=== PATIENT | female | born 1980 | race American Indian/Alaskan Native ===

== ENCOUNTER 2016-12-28 19:35 | Emergency (ER) | payer MEDICARE, OTHER ==
[2016-12-28 19:35] VITALS: BMI 25.7
[2016-12-28 19:43] VITALS: BP 124/80; PULSE 82; RESP 20; TEMP 98.4; O2SAT 99
--- NOTE | 2016-12-28 20:30 | C.PDOC ---
History Of Present Illness 36 y/o female complaining of vaginal rash that presented two days ago. She is concerned about vaginal warts. Denies any vaginal swelling, vaginal bleeding, itching, pain, or other complaint. Time Seen by Provider: 12/28/16 19:58 Chief Complaint (Nursing): Abnormal Skin Integrity Onset/Duration Of Symptoms: Days (2) Current Symptoms Are (Timing): Still Present Location Of Injury: Right: Labia, Left: Labia Quality Of Symptoms: denies: Painful, Itching, Swollen, Draining Severity: None Recent travel outside of the [place]: No Additional History Per: Patient Past Medical History Vital Signs: Last Vital Signs Temp 98.4 F 12/28/16 19:40 Pulse 82 12/28/16 19:40 Resp 20 12/28/16 19:40 BP 124/80 12/28/16 19:40 Pulse Ox 99 12/28/16 20:35 - Medical History PMH: Anxiety, Bipolar Disorder, Depression, Schizophrenia, Seizures (last episode 2013) Denies: Diabetes, Hepatitis, HIV, HTN, Sexually Transmitted Disease Surgical History: Cholecystectomy - [facility] Procedures INDIVID PSYCHOTHERAP NEC (03/30/14) INJECT/INFUSE NEC (01/08/14) OTHER GROUP THERAPY (03/30/14) PSYCHIA INTERV/EVAL NEC (03/22/13) PSYCHIAT DRUG THERAP NEC (11/16/13) Family History: States: Unknown Family Hx - Social History Hx Tobacco Use: Yes Hx Alcohol Use: No Hx Substance Use: No - Immunization History Hx Tetanus Toxoid Vaccination: No Hx Influenza Vaccination: No Hx Pneumococcal Vaccination: No Review Of Systems Except As Marked, All Systems Reviewed And Found Negative. Skin: Positive for: Lesions Physical Exam - Physical Exam Appears: Well, No Acute Distress Skin: Normal Color, Warm, Other (see exam) Head: Atraumatic, Normacephalic Eye(s): bilateral: Normal Inspection, PERRL Neck: Normal ROM Respiratory: Normal Breath Sounds Gastrointestinal/Abdominal: Normal Exam, Bowel Sounds, Soft, No Tenderness Back: Normal Inspection Pelvic: Normal Speculum Exam, Normal Bimanual Exam, No Vaginal Bleeding, No Vaginal Discharge, Other (small flesh colored non erythematous, nontender papule noted to labia majora, bilaterally. No vesicles, no canker sores, no mass , swelling or fluctuance. ) ED Course And Treatment O2 Sat by Pulse Oximetry: 99 (RA) Pulse Ox Interpretation: Normal Medical Decision Making Medical Decision Making: Patient evaluated. She is medically stable for discharge and comfortable going home. All questions answered to the patient's satisfaction. She will follow up with her PMD, and should return to the department with any new/worsening concerns. Disposition Doctor Will See Patient In The: Office Counseled Patient/Family Regarding: Diagnosis, Need For Followup - Disposition Disposition: HOME/ ROUTINE Disposition Time: 20:20 Condition: STABLE Additional Instructions: Please follow up with [facility] [employer] Retun to ER if worse Instructions: Folliculitis (ED) - Clinical Impression Clinical Impression: Inflammation of hair follicles, Vaginal irritation - Scribe Statement The provider has reviewed the documentation as recorded by the Scribe Nubia Paris
--- NOTE | 2016-12-28 20:32 | C.PDOC ---
Chief Complaint (Nursing): Abnormal Skin Integrity Past Medical History Vital Signs: Last Vital Signs Temp 98.4 F 12/28/16 19:40 Pulse 82 12/28/16 19:40 Resp 20 12/28/16 19:40 BP 124/80 12/28/16 19:40 Pulse Ox 99 12/28/16 19:40 - Medical History PMH: Anxiety, Bipolar Disorder, Depression, Schizophrenia, Seizures (last episode 2013) Denies: Diabetes, Hepatitis, HIV, HTN, Sexually Transmitted Disease Surgical History: Cholecystectomy - [facility] Procedures INDIVID PSYCHOTHERAP NEC (03/30/14) INJECT/INFUSE NEC (01/08/14) OTHER GROUP THERAPY (03/30/14) PSYCHIA INTERV/EVAL NEC (03/22/13) PSYCHIAT DRUG THERAP NEC (11/16/13) Family History: States: Unknown Family Hx - Social History Hx Tobacco Use: Yes Hx Alcohol Use: No Hx Substance Use: No - Immunization History Hx Tetanus Toxoid Vaccination: No Hx Influenza Vaccination: No Hx Pneumococcal Vaccination: No ED Course And Treatment O2 Sat by Pulse Oximetry: 99 Disposition - Disposition Disposition: HOME/ ROUTINE Disposition Time: 20:29 Condition: STABLE Additional Instructions: Please follow up with [facility] Retun to ER if worse Instructions: Folliculitis (ED) - Clinical Impression Clinical Impression: Inflammation of hair follicles, Vaginal irritation
== END 2016-12-28 20:37 | disposition home or self-care (01) ==
LOC: C.ER 19:35
DX: L73.8 Other specified follicular disorders (principal); N89.8 Other specified noninflammatory disorders of vagina

== ENCOUNTER 2017-05-17 09:55 | Inpatient (IN) | payer MEDICARE, MEDICAID ==
[2017-05-17 09:55] VITALS: BMI 25.7
--- NOTE | 2017-05-17 10:20 | C.PDOC ---
History Of Present Illness 36 y/o female with Hx of Schizophrenia presents to ED with homicidal ideation beginning today with associated audible hallucination. Patient states "I want to hurt white people" and reports to be compliant with psych medications. No other complaints at this time. HOMICIDAL IDEATION TODAY. +AUD HALLUCINATIONS, WANTS "TO HURT WHITE PEOPLE". COMPLIANT W PSYCH MEDS history of schizophrenia EXAM NAD PSYCH CALM COOPERATIVE +ACTIVE AUD HALLUCINATIONS, H.I. REMAINDER EG Time Seen by Provider: 05/17/17 10:06 History Per: Patient History/Exam Limitations: no limitations Onset/Duration Of Symptoms: Days Current Symptoms Are (Timing): Still Present Suicide/Self Injury Attempted (Context): None Modifying Factor(s): None Past Medical History Reviewed: Historical Data, Nursing Documentation, Vital Signs Vital Signs: Last Vital Signs Temp 97.8 F 05/17/17 10:00 Pulse 68 05/17/17 10:00 Resp 18 05/17/17 10:00 BP 104/70 05/17/17 10:00 Pulse Ox 99 05/17/17 11:26 - Medical History PMH: Anxiety, Bipolar Disorder, Depression, Schizophrenia, Seizures (last episode 2013) Surgical History: Cholecystectomy - [facility] Procedures INDIVID PSYCHOTHERAP NEC (03/30/14) INJECT/INFUSE NEC (01/08/14) OTHER GROUP THERAPY (03/30/14) PSYCHIA INTERV/EVAL NEC (03/22/13) PSYCHIAT DRUG THERAP NEC (11/16/13) Family History: States: No Known Family Hx - Social History Hx Tobacco Use: Yes Hx Alcohol Use: No Hx Substance Use: No - Immunization History Hx Tetanus Toxoid Vaccination: No Hx Influenza Vaccination: No Hx Pneumococcal Vaccination: No Review Of Systems Except As Marked, All Systems Reviewed And Found Negative. Constitutional: Negative for: Fever, Chills Cardiovascular: Negative for: Chest Pain Respiratory: Negative for: Shortness of Breath Skin: Negative for: Rash Neurological: Negative for: Weakness, Numbness Psych: Positive for: Other (Homicidal ideation). Negative for: Suicidal ideation Physical Exam - Physical Exam Appears: Non-toxic, No Acute Distress Skin: Normal Color, Warm, Dry, No Rash Head: Normacephalic Eye(s): bilateral: Normal Inspection Oral Mucosa: Moist Neck: Normal ROM, Supple Chest: Symmetrical Cardiovascular: Rhythm Regular, No Murmur Respiratory: Normal Breath Sounds, No Rales, No Rhonchi, No Wheezing Extremity: Normal ROM, Capillary Refill (<2 seconds) Neurological/Psych: Oriented x3, Normal Speech, Other (calm, cooperative, Active audible hallucinations) ED Course And Treatment - Laboratory Results Result Diagrams: 05/17/17 10:32 05/17/17 10:32 O2 Sat by Pulse Oximetry: 99 (RA) Pulse Ox Interpretation: Normal Progress - Re-Evaluation Re-evaluation Note: 05/17/17 10:19 D/W CRISIS CARLOS WILL EVAL IN ER 05/17/17 11:25 MED CLEAR FOR PSYCH. ASYMPT ABN UA. ADVISE FU UA, CONSULT MEDICINE PRN CRISIS CARLOS NOTIFIED - Data Reviewed Data Reviewed: Lab, Old records - Continuity of Care Discussed pt. case with business operations consultant/specialty: Psychiatry Disposition Counseled Patient/Family Regarding: Studies Performed, Diagnosis - Disposition Disposition: HOSPITALIZED Disposition Time: 11:55 Condition: STABLE - POA Present On Arrival: None - Clinical Impression Clinical Impression: Schizophrenia, Homicidal ideation - Scribe Statement The provider has reviewed the documentation as recorded by the Scribe Claudette Moffett All medical record entries made by the Scribe were at my direction and personally dictated by me. I have reviewed the chart and agree that the record accurately reflects my personal performance of the history, physical exam, medical decision making, and the department course for this patient. I have also personally directed, reviewed, and agree with the discharge instructions and disposition. Decision To Admit - Pt Status Changed To: Hospital Disposition Of: Inpatient - Admit Certification Admit to Inpatient:: After my assessment, the patient will require hospitalization for at least two midnights. This is because of the severity of symptoms shown, intensity of services needed, and/or the medical risk in this patient being treated as an outpatient. - InPatient: Physician Admission Certification: I certify that this patient requires 2 or more midnights of care for the following reason:: SEE NOTE - . Bed Request Type: Psychiatry Admitting Physician: Marcelino Gomez Patient Diagnosis: Schizophrenia, Homicidal ideation
[2017-05-17 10:41] LABS: BASO # 0.1 K/uL (0.0-0.2); BASO % 0.6 % (0.0-2.0); EOS # 0.3 K/uL (0.0-0.7); EOS % 3.9 % (0.0-4.0); HEMATOCRIT 36.7 % (34.0-47.0); LYMPH # 3.1 K/uL (1.0-4.3); LYMPH % 38.6 % (20.0-40.0); MEAN CELL VOLUME 85.8 fL (81.0-99.0); MEAN CORPUSCULAR HEMOGLOBIN 29.5 pg (27.0-31.0); MEAN CORPUSCULAR HGB CONC 34.4 g/dL (33.0-37.0); MEAN PLATELET VOLUME 7.7 fL (7.2-11.7); MONO # 0.6 K/uL (0.0-0.8); MONO % 6.8 % (0.0-10.0); RED CELL DISTRIBUTION WIDTH 14.3 % (11.5-14.5); WHITE BLOOD COUNT 8.1 K/uL (4.8-10.8)
[2017-05-17 10:52] LABS: CHLORIDE 99 mmol/L (98-107)
[2017-05-17 10:53] LABS: POTASSIUM 3.8 mmol/L (3.6-5.2); SODIUM 140 mmol/L (132-148)
[2017-05-17 10:55] LABS: ALB/GLOB RATIO 1.4 (1.0-2.1); ALKALINE PHOSPHATASE 58 U/L (38-126); ALT/SGPT 21 U/L (9-52); AST/SGOT 15 U/L (14-36); BILIRUBIN,TOTAL 0.7 mg/dL (0.2-1.3); BLOOD UREA NITROGEN 6 mg/dL (7-17); CARBON DIOXIDE 25 mmol/L (22-30); GFR AFRICAN-AMERICAN > 60; GLUCOSE,RANDOM 77 mg/dL (65-105); TOTAL PROTEIN 7.2 g/dL (6.3-8.3)
[2017-05-17 10:56] LABS: ALCOHOL SERUM < 10 mg/dl (0-10); CALCIUM 9.2 mg/dl (8.6-10.4)
[2017-05-17 11:10] LABS: RBC URINE 2 /hpf (0-3); URINE BACTERIA RARE (<OCC); URINE BILIRUBIN NEGATIVE (NEGATIVE); URINE BLOOD NEGATIVE (NEGATIVE); URINE COLOR Yellow (YELLOW); URINE GLUCOSE (UA) NORMAL (Normal); URINE KETONE 1+ mg/dL (NEGATIVE); URINE LEUKOCYTE ESTERASE 1+ Leu/uL (Negative); URINE PROTEIN 1+ mg/dL (NEGATIVE); WBC URINE 17 /hpf (0-5)
--- NOTE | 2017-05-17 13:51 | PCM.BM ---
<Jana Benitez - Last Filed: 05/19/17 11:23> Family Contact Family involvement: Family/SO is involved Family contact: Patient agrees to contact Family contact name: Mary Razo-sister Family contacted how many times per week?: 1 - Goals for Treatment Patient goals for treatment: "I want to go back to [facility] Discharge/Continuing Care - Education Needs Education Needs: Patient Medication, Patient Coping Skills - Discharge Discharge Criteria: Tolerates medication w/o severe side effects, Reduction of target symptoms Discharge to:: Home - Treatment Team Participation Discussed with Family/SO: Yes Was Patient/Family/SO present at Treatment Team Meeting: Yes <Zeenat Perry - Last Filed: 05/19/17 11:52> Treatment Plan Problems - Problems identified on initial assessmt Hallucinations Auditory Date Initiated: 05/19/17 Time Initiated: 11:55 Assessment reference: NA Status: Active Treatment assets and liabiliti Patient Assests: cooperative, physically healthy, negotiates basic needs Patient Liabilities: auditory impairment, other - Milieu Protocol Maintain good personal hygiene: daily Encourage regular showers, daily Remind patient to perform daily oral care, daily Assist patient to perform ADL's Maintain personal safety: daily Educate patient to report safety concerns to staff, daily Monitor environment for contraband/sharps Medication safety: Monitor for expected outcome, potential side effects: every other day, Assess barriers to learning: daily, Assess readiness for medication education: daily <Marcelino Gomez - Last Filed: 05/19/17 17:03> - Diagnosis (1) Schizophrenia Status: Acute Interventions: Medications We will see patient every day for 7 days Supportive therapy Group therapy 05/19/17 17:02
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
--- NOTE | 2017-05-19 17:05 | PCM.PYCHPN ---
Psychiatric Progress Note - Psychiatric Progress Note Patient seen today, length of contact: 15 minutes Patient Chief Complaint: I'm feeling much better with the treatment. Problems Identified/Issues Discussed: Patient seen. Chart reviewed. Issues related to illness and treatment were discussed with the patient Reported compliant with treatment with no adverse affects. Tolerating treatment very well. Reported she is feeling much better with the treatment. Less delusions. Better sleep. Aftercare discussed with the patient. At the time of evaluation, patient was awake alert oriented 3, had no delusions , no auditory or visual hallucinations, no suicidal ideations or homicidal ideations. Medical Problems: None reported Diagnostic Results: Reviewed DSM 5 Symptoms Update: Improving with treatment Medication Change: No Medical Record Reviewed: Yes Mental Status Examination - Cognitive Function Orientation: Person, Place, Situation, Time Memory: Intact Attention: WNL Concentration: WNL Association: WNL Fund of Knowledge: [facility] Decription of patient's judgement and insights: Fair - Mood Mood: Depressed (Less than before) - Affect Affect: Flat - Speech Speech: Appropriate - Formal Thought Process Formal Thought Process: Delusions - Suicidal Ideation Suicidal Ideation: No - Homicidal Ideation Homicidal Ideation: No Goal/Treatment Plan - Goal/Treatment Plan Need for Continued Stay: Remain at risks for inpatient hospitalization, Discharge may exacerbated symptoms, Severe functional impairment Progress Toward Problem(s) and Goals/Treatment Plan: Patient education Supportive therapy Continue treatment as before Estimated Date of D/C: 05/24/17 - Smoking Cessation Smoking Cessation Initiated: No Reason for not providing: Patient doesn't smoke cigarettes
[2017-05-20 07:09] VITALS: O2SAT 98
--- NOTE | 2017-05-20 18:06 | PCM.PYCHPN ---
Psychiatric Progress Note - Psychiatric Progress Note Patient seen today, length of contact: 15 minutes Patient Chief Complaint: "I'm doing better" Problems Identified/Issues Discussed: Patient was seen. Chart was reviewed important content noted. Nurse input received. Patient has no new complaints. No events overnight. Patient slept well and is eating well. Patient denies any depressive symptoms. Denies suicidal or homicidal ideations. Patient does not report hallucinations. No delusions elicited. No paranoia elicited. Patient has remained in good clinical and behavioral control. Patient is finding medications beneficial and would like to continue with treatment plan. Patient appreciated that treatment team is trying to help. DSM 5 Symptoms Update: Schizophrenia Medication Change: No Medical Record Reviewed: Yes Mental Status Examination - Cognitive Function Orientation: Person, Place, Situation, Time Memory: Intact Attention: WNL Concentration: WNL Association: WNL Fund of Knowledge: WNL - Mood Mood: Depressed (Less than before) - Affect Affect: Flat - Speech Speech: Appropriate - Formal Thought Process Formal Thought Process: Delusions - Suicidal Ideation Suicidal Ideation: No - Homicidal Ideation Homicidal Ideation: No Goal/Treatment Plan - Goal/Treatment Plan Need for Continued Stay: Remain at risks for inpatient hospitalization, Discharge may exacerbated symptoms, Severe functional impairment Progress Toward Problem(s) and Goals/Treatment Plan: Continue current medication as per primary team. Therapy in [facility] benefits, risk, s/e discussed with pt. She verbalized understanding and agree with the treatment and plan. Estimated Date of D/C: 05/24/17
--- NOTE | 2017-05-21 17:45 | PCM.PYCHPN ---
Psychiatric Progress Note - Psychiatric Progress Note Patient seen today, length of contact: 15 minutes Patient Chief Complaint: "I'm doing Fine" Problems Identified/Issues Discussed: Patient was seen. Chart was reviewed important content noted. Nurse input received. Patient has no new complaints. He stated that he is feeling better. No events overnight. Patient slept well and is eating well. Patient denies any depressive symptoms. Denies suicidal or homicidal ideations. Patient does not report hallucinations. No delusions elicited. No paranoia elicited. Patient has remained in good clinical and behavioral control. Patient is finding medications beneficial and would like to continue with treatment plan. Patient appreciated that treatment team is trying to help. Diagnostic Results: No new labs DSM 5 Symptoms Update: Schizophrenia, paranoid Medication Change: No Medical Record Reviewed: Yes Mental Status Examination - Cognitive Function Orientation: Person, Place, Situation, Time Memory: Intact Attention: WNL Concentration: WNL Association: WN Fund of Knowledge: [facility] Decription of patient's judgement and insights: Fair/fair - Mood Mood: Other (I'm feeling better) - Affect Affect: Flat - Speech Speech: Appropriate - Formal Thought Process Formal Thought Process: No Impairment - Suicidal Ideation Suicidal Ideation: No - Homicidal Ideation Homicidal Ideation: No Goal/Treatment Plan - Goal/Treatment Plan Need for Continued Stay: Remain at risks for inpatient hospitalization, Discharge may exacerbated symptoms, Severe functional impairment Progress Toward Problem(s) and Goals/Treatment Plan: Continue current medication as per primary team. Therapy in [facility] benefits, risk, s/e discussed with pt. She verbalized understanding and agree with the treatment and plan. Estimated Date of D/C: 05/24/17
--- NOTE | 2017-05-22 14:12 | PCM.PYCHPN ---
Psychiatric Progress Note - Psychiatric Progress Note Patient seen today, length of contact: 15 minutes Patient Chief Complaint: I'm feeling much better with the treatment. Problems Identified/Issues Discussed: Patient seen. Chart reviewed. Case discussed with the staff. Issues related to illness and treatment were discussed with the patient Reported compliant with treatment with no adverse affects. Tolerating treatment very well. Reported she is feeling much better with the treatment. No delusions. Better sleep. Aftercare discussed with the patient. At the time of evaluation, patient was awake alert oriented 3, had no delusions , no auditory or visual hallucinations, no suicidal ideations or homicidal ideations. Medical Problems: None reported Diagnostic Results: Reviewed DSM 5 Symptoms Update: Improving with treatment Medication Change: No Medical Record Reviewed: Yes Mental Status Examination - Cognitive Function Orientation: Person, Place, Situation, Time Memory: Intact Attention: WNL Concentration: WNL Association: WN Fund of Knowledge: [facility] Decription of patient's judgement and insights: Fair - Mood Mood: Neutral - Affect Affect: Other (Appropriate) - Speech Speech: Appropriate - Formal Thought Process Formal Thought Process: No Impairment Psychotic Thoughts and Behaviors: None - Suicidal Ideation Suicidal Ideation: No - Homicidal Ideation Homicidal Ideation: No Goal/Treatment Plan - Goal/Treatment Plan Need for Continued Stay: Remain at risks for inpatient hospitalization, Discharge may exacerbated symptoms, Severe functional impairment Progress Toward Problem(s) and Goals/Treatment Plan: Patient education Supportive therapy Continue treatment as before Estimated Date of D/C: 05/24/17 - Smoking Cessation Smoking Cessation Initiated: No Reason for not providing: Patient doesn't smoke cigarettes
[2017-05-23] MEDS ORDERED: Albuterol HFA 90 mcg/actuation (8 g) INH PRN (17:18)
--- NOTE | 2017-05-23 18:04 | PCM.PYCHPN ---
Psychiatric Progress Note - Psychiatric Progress Note Patient seen today, length of contact: 15 minutes Patient Chief Complaint: I'm feeling much better with the treatment. Problems Identified/Issues Discussed: Patient seen. Chart reviewed. Case discussed with the staff. Issues related to illness and treatment were discussed with the patient Reported compliant with treatment with no adverse affects. Tolerating treatment very well. Reported she is feeling much better with the treatment. No delusions. Better sleep. Aftercare discussed with the patient. At the time of evaluation, patient was awake alert oriented 3, had no delusions , no auditory or visual hallucinations, no suicidal ideations or homicidal ideations. Medical Problems: None reported Diagnostic Results: Reviewed DSM 5 Symptoms Update: Improving with treatment Medication Change: No Medical Record Reviewed: Yes Mental Status Examination - Cognitive Function Orientation: Person, Place, Situation, Time Memory: Intact Attention: WNL Concentration: WNL Association: WN Fund of Knowledge: [facility] Decription of patient's judgement and insights: Fair - Mood Mood: Neutral - Affect Affect: Other (Appropriate) - Speech Speech: Appropriate - Formal Thought Process Formal Thought Process: No Impairment Psychotic Thoughts and Behaviors: None - Suicidal Ideation Suicidal Ideation: No - Homicidal Ideation Homicidal Ideation: No Goal/Treatment Plan - Goal/Treatment Plan Need for Continued Stay: Remain at risks for inpatient hospitalization, Discharge may exacerbated symptoms, Severe functional impairment Progress Toward Problem(s) and Goals/Treatment Plan: Patient education Supportive therapy Continue treatment as before Estimated Date of D/C: 05/24/17 - Smoking Cessation Smoking Cessation Initiated: No
[2017-05-24 07:22] VITALS: BP 111/61; PULSE 66; RESP 20; TEMP 98.1
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
== END 2017-05-24 10:30 | disposition home or self-care (01) | DRG 885 ==
LOC: C.ER 09:55 → C.5E 11:56
PROC: GZ3ZZZZ Medication Management (ICD-10-PCS; principal; 2017-05-17)
PROC: GZHZZZZ Group Psychotherapy (ICD-10-PCS; 2017-05-17)
PROC: GZ56ZZZ Individual Psychotherapy, Supportive (ICD-10-PCS; 2017-05-17)
DX: F20.0 Paranoid schizophrenia (principal); R44.0 Auditory hallucinations; R45.850 Homicidal ideations; F17.210 Nicotine dependence, cigarettes, uncomplicated; F31.9 Bipolar disorder, unspecified; Z91.5 Personal history of self-harm

== ENCOUNTER 2017-06-19 14:57 | Emergency (ER) | payer MEDICARE, OTHER ==
[2017-06-19 14:57] VITALS: BMI 25.7
[2017-06-19 16:49] LABS: BASO # 0.1 K/uL (0.0-0.2); BASO % 0.5 % (0.0-2.0); EOS # 0.4 K/uL (0.0-0.7); EOS % 3.6 % (0.0-4.0); LYMPH # 3.8 K/uL (1.0-4.3); LYMPH % 36.6 % (20.0-40.0); MEAN CELL VOLUME 87.4 fL (81.0-99.0); MEAN CORPUSCULAR HEMOGLOBIN 29.3 pg (27.0-31.0); MEAN CORPUSCULAR HGB CONC 33.6 g/dL (33.0-37.0); MEAN PLATELET VOLUME 7.5 fL (7.2-11.7); MONO # 0.7 K/uL (0.0-0.8); MONO % 6.6 % (0.0-10.0); NRBC % 0.1 % (0.0-2.0); RED CELL DISTRIBUTION WIDTH 14.2 % (11.5-14.5); WHITE BLOOD COUNT 10.4 K/uL (4.8-10.8)
[2017-06-19 16:55] VITALS: RESP 17; O2SAT 100
[2017-06-19 16:57] LABS: RBC URINE 2593 /hpf (0-3); TRANSITIONAL EPITHIAL 1 /hpf (0-3); URINE BACTERIA OCC (<OCC); URINE BILIRUBIN NEGATIVE (NEGATIVE); URINE BLOOD 3+ (NEGATIVE); URINE COLOR Red (YELLOW); URINE GLUCOSE (UA) NORMAL (Normal); URINE KETONE NEGATIVE (NEGATIVE); URINE LEUKOCYTE ESTERASE 2+ Leu/uL (Negative); URINE PROTEIN 2+ mg/dL (NEGATIVE); WBC URINE 124 /hpf (0-5)
[2017-06-19 16:59] LABS: CHLORIDE 98 mmol/L (98-107); SODIUM 137 mmol/L (132-148)
[2017-06-19 17:00] LABS: POTASSIUM 3.9 mmol/L (3.6-5.2)
[2017-06-19 17:01] LABS: GFR AFRICAN-AMERICAN > 60
[2017-06-19 17:02] LABS: ALB/GLOB RATIO 1.6 (1.0-2.1); ALKALINE PHOSPHATASE 61 U/L (38-126); ALT/SGPT 29 U/L (9-52); AST/SGOT 15 U/L (14-36); BILIRUBIN,TOTAL 0.5 mg/dL (0.2-1.3); BLOOD UREA NITROGEN 10 mg/dL (7-17); CALCIUM 9.3 mg/dl (8.6-10.4); CARBON DIOXIDE 29 mmol/L (22-30); GLUCOSE,RANDOM 83 mg/dL (65-105); TOTAL PROTEIN 7.1 g/dL (6.3-8.3)
[2017-06-19 17:03] LABS: ALCOHOL SERUM < 10 mg/dl (0-10)
[2017-06-19 18:00] VITALS: BP 117/69; PULSE 80; TEMP 98.5
--- NOTE | 2017-06-19 18:37 | C.PDOC ---
History Of Present Illness Pt was sent in by his counselor for psychiatric evaluation. Time Seen by Provider: 06/19/17 15:52 Chief Complaint (Nursing): Psychiatric Evaluation History Per: Patient Onset/Duration Of Symptoms: Days Current Symptoms Are (Timing): Still Present Suicide/Self Injury Attempted (Context): None Modifying Factor(s): None Severity: Moderate Associated Symptoms: denies: Suicidal Thoughts, Suicidal Plan Additional History Per: Prior Records Past Medical History Reviewed: Historical Data, Nursing Documentation, Vital Signs Vital Signs: Last Vital Signs Temp 98.5 F 06/19/17 17:59 Pulse 80 06/19/17 17:59 Resp 17 06/19/17 17:59 BP 117/69 06/19/17 17:59 Pulse Ox 100 06/19/17 17:59 - Medical History PMH: Anxiety, Bipolar Disorder, Depression, Schizophrenia, Seizures (last episode 2013) Surgical History: Cholecystectomy (2014) - [facility] Procedures GROUP PSYCHOTHERAPY (05/17/17) INDIVID PSYCHOTHERAP NEC (03/30/14) INDIVIDUAL PSYCHOTHERAPY, SUPPORTIVE (05/17/17) INJECT/INFUSE NEC (01/08/14) MEDICATION MANAGEMENT (05/17/17) OTHER GROUP THERAPY (03/30/14) PSYCHIA INTERV/EVAL NEC (03/22/13) PSYCHIAT DRUG THERAP NEC (11/16/13) Family History: States: Unknown Family Hx - Social History Hx Tobacco Use: Yes Hx Alcohol Use: No Hx Substance Use: No - Immunization History Hx Tetanus Toxoid Vaccination: No Hx Influenza Vaccination: No Hx Pneumococcal Vaccination: No Review Of Systems Except As Marked, All Systems Reviewed And Found Negative. Constitutional: Negative for: Fever, Weakness Cardiovascular: Negative for: Chest Pain Respiratory: Negative for: Shortness of Breath Gastrointestinal: Negative for: Vomiting, Abdominal Pain Musculoskeletal: Negative for: Neck Pain Neurological: Negative for: Weakness, Numbness Psych: Positive for: Psychosis Physical Exam - Physical Exam Appears: Non-toxic, No Acute Distress Skin: Normal Color, Warm, Dry, No Rash Head: Atraumatic, Normacephalic Eye(s): bilateral: PERRL, EOMI Neck: Normal ROM, Supple Cardiovascular: Rhythm Regular Respiratory: Normal Breath Sounds, No Accessory Muscle Use Gastrointestinal/Abdominal: Soft, No Tenderness Back: No CVA Tenderness Extremity: Normal ROM Neurological/Psych: Oriented x3, Normal Motor, Normal Sensation ED Course And Treatment - Laboratory Results Result Diagrams: 06/19/17 16:33 06/19/17 16:33 Lab Interpretation: No Acute Changes Urine POC: Negative O2 Sat by Pulse Oximetry: 100 Pulse Ox Interpretation: Normal Progress Note: Pt was evaluated by the fruit ii farmworker who d/w Dr. Esparza. They psychiatrically cleared pt for discharge home. Disposition Counseled Patient/Family Regarding: Studies Performed, Diagnosis, Need For Followup - Disposition Disposition: HOME/ ROUTINE Disposition Time: 18:38 Condition: STABLE Additional Instructions: Follow up with your doctor. Return to the ER if you develop suicidal or homicidal thoughts, worsening of symptoms or if you have any other concerns. Forms: [facility] (Croatian), General Discharge Instructions - Clinical Impression Clinical Impression: Psychiatric exam requested by authority
== END 2017-06-19 18:44 | disposition home or self-care (01) ==
LOC: C.ER 14:57
DX: Z04.6 Encounter for general psychiatric examination, requested by authority (principal)
CPT/HCPCS: 80053; 81001; 84703; 85025; 99284; G0480

== ENCOUNTER 2017-12-07 22:59 | Inpatient (IN) | payer MEDICARE, MEDICAID ==
[2017-12-07 23:00] VITALS: BMI 25.7
--- NOTE | 2017-12-07 23:21 | C.PDOC ---
History Of Present Illness Patient presents stating that she is homicidal and want to kill some white people. Has no plan. Pleasant , cooperative. Has not been compliant with her medications. No f/c/n/v Time Seen by Provider: 12/07/17 23:01 Chief Complaint (Nursing): Psychiatric Evaluation History Per: Patient History/Exam Limitations: no limitations Onset/Duration Of Symptoms: Unknown Current Symptoms Are (Timing): Still Present Suicide/Self Injury Attempted (Context): None Modifying Factor(s): None Severity: Moderate Pain Scale Rating Of: 4 Associated Symptoms: Other (homicidal ideation) Involuntary Hold By: None Recent travel outside of the [place]: No Additional History Per: Patient Past Medical History Reviewed: Historical Data, Nursing Documentation, Vital Signs Vital Signs: Last Vital Signs Temp 99.2 F 12/07/17 23:00 Pulse 85 12/07/17 23:00 Resp 18 12/07/17 23:00 BP 114/80 12/07/17 23:00 Pulse Ox 100 12/07/17 23:21 - Medical History PMH: Anxiety, Bipolar Disorder, Depression, Schizophrenia, Seizures (last episode 2013) Denies: HIV, HTN, Chronic Kidney Disease, Sexually Transmitted Disease Surgical History: Cholecystectomy (2014) - [facility] Procedures GROUP PSYCHOTHERAPY (05/17/17) INDIVID PSYCHOTHERAP NEC (03/30/14) INDIVIDUAL PSYCHOTHERAPY, SUPPORTIVE (05/17/17) INJECT/INFUSE NEC (01/08/14) MEDICATION MANAGEMENT (05/17/17) OTHER GROUP THERAPY (03/30/14) PSYCHIA INTERV/EVAL NEC (03/22/13) PSYCHIAT DRUG THERAP NEC (11/16/13) Family History: States: No Known Family Hx - Social History Hx Tobacco Use: Yes Hx Alcohol Use: No Hx Substance Use: No - Immunization History Hx Tetanus Toxoid Vaccination: No Hx Influenza Vaccination: No Hx Pneumococcal Vaccination: No Review Of Systems Constitutional: Negative for: Fever, Chills Eyes: Negative for: Redness Cardiovascular: Negative for: Chest Pain Respiratory: Negative for: Shortness of Breath Gastrointestinal: Negative for: Nausea, Vomiting, Abdominal Pain Genitourinary: Negative for: Dysuria Musculoskeletal: Negative for: Back Pain Skin: Negative for: Rash Neurological: Negative for: Weakness Psych: Positive for: Other (homicidal ideation) Physical Exam - Physical Exam Appears: Non-toxic, No Acute Distress Skin: Warm, Dry Head: Normacephalic Eye(s): bilateral: Normal Inspection Oral Mucosa: Moist Neck: Supple Chest: Symmetrical Respiratory: No Rales, No Rhonchi, No Wheezing Gastrointestinal/Abdominal: Soft, No Tenderness, No Distention Back: Normal Inspection Extremity: Normal ROM Extremity: Bilateral: Atraumatic Neurological/Psych: Oriented x3, Normal Speech Gait: Steady ED Course And Treatment - Laboratory Results Result Diagrams: 12/08/17 00:34 12/08/17 00:34 O2 Sat by Pulse Oximetry: 100 Pulse Ox Interpretation: Normal Disposition Discussed With Dr.: Lico Headley Comment: accepted the pt on his service and took over the care at 2:49AM Doctor Will See Patient In The: Hospital Counseled Patient/Family Regarding: Studies Performed, Diagnosis - Disposition Referrals: Non [facility] Provider, [Primary Care Provider] - Disposition: HOSPITALIZED Disposition Time: 02:49 Condition: FAIR Forms: [facility] (Mongolian) - POA Present On Arrival: None - Clinical Impression Clinical Impression: Schizophrenia Decision To Admit - Pt Status Changed To: Hospital Disposition Of: Inpatient - Admit Certification Admit to Inpatient:: After my assessment, the patient will require hospitalization for at least two midnights. This is because of the severity of symptoms shown, intensity of services needed, and/or the medical risk in this patient being treated as an outpatient. - InPatient: Physician Admission Certification: I certify that this patient requires 2 or more midnights of care for the following reason:: After my assessment, the patient will require hospitalization for at least two midnights. This is because of the severity of symptoms shown, intensity of services needed, and/or the medical risk in this patient being treated as an outpatient. - . Bed Request Type: Psychiatry Admitting Physician: Lico Headley Patient Diagnosis: Schizophrenia
[2017-12-08 00:37] LABS: BASO # 0.1 K/uL (0.0-0.2); BASO % 0.8 % (0.0-2.0); EOS # 0.5 K/uL (0.0-0.7); EOS % 2.9 % (0.0-4.0); HEMOGLOBIN 12.3 g/dL (11.0-16.0); LYMPH # 5.8 K/uL (1.0-4.3); MEAN CELL VOLUME 87.9 fL (81.0-99.0); MEAN CORPUSCULAR HGB CONC 34.2 g/dL (33.0-37.0); MEAN PLATELET VOLUME 7.7 fL (7.2-11.7); MONO # 0.9 K/uL (0.0-0.8); MONO % 5.5 % (0.0-10.0); NEUT # 9.2 K/uL (1.8-7.0); NEUT % 55.8 % (50.0-75.0); RBC 4.1 Mil/uL (3.80-5.20); RED CELL DISTRIBUTION WIDTH 14.2 % (11.5-14.5); WHITE BLOOD COUNT 16.5 K/uL (4.8-10.8)
[2017-12-08 00:48] LABS: SQUAMOUS EPITHIAL 1 /hpf (0-5); URINE BILIRUBIN NEGATIVE (NEGATIVE); URINE BLOOD NEGATIVE (NEGATIVE); URINE CLARITY Clear (Clear); URINE COLOR Yellow (YELLOW); URINE GLUCOSE (UA) NORMAL (Normal); URINE LEUKOCYTE ESTERASE TRACE Leu/uL (Negative); URINE PROTEIN NEGATIVE (NEGATIVE); URINE UROBILINOGEN NORMAL mg/dL (0.2-1.0)
[2017-12-08 00:49] LABS: ALB/GLOB RATIO 1.1 (1.0-2.1); ALBUMIN 3.7 g/dL (3.5-5.0); ALT/SGPT 14 U/L (9-52); AST/SGOT 13 U/L (14-36); BLOOD UREA NITROGEN 10 mg/dL (7-17); CALCIUM 8.8 mg/dl (8.6-10.4); GFR AFRICAN-AMERICAN > 60; GFR NON-AFRICAN AMERICAN > 60
[2017-12-08 01:02] LABS: BARBITURATES, UR NEGATIVE (NEGATIVE); BENZODIAZEPINES, UR NEGATIVE (NEGATIVE); OPIATES, UR NEGATIVE (NEGATIVE); PHENCYCLIDINE, UR NEGATIVE (NEGATIVE)
--- NOTE | 2017-12-08 03:56 | PCM.BM ---
<Janes Lema - Last Filed: 12/08/17 03:55> Treatment Plan Problems - Problems identified on initial assessmt Auditory Hallucination Date Initiated: 12/08/17 Time Initiated: 03:20 Assessment reference: NA Status: Monitor Homicidal Ideation Date Initiated: 12/08/17 Time Initiated: 03:20 Assessment reference: NA Status: Monitor Treatment assets and liabiliti Patient Assests: cooperative, physically healthy, negotiates basic needs Patient Liabilities: poor support system - Milieu Protocol Maintain good personal hygiene: daily Encourage regular showers, daily Remind patient to perform daily oral care, every shift Assist patient to perform ADL's Conduct patient checks and document Observation sheet: Q15 minutes Maintain personal safety: every shift Educate patient to report safety concerns to staff, every shift Monitor environment for contraband/sharps Medication safety: Monitor for expected outcome, potential side effects: every shift, Assess barriers to learning: every shift, Assess readiness for medication education: every shift <Lico Headley - Last Filed: 12/08/17 11:32> - Diagnosis (1) Schizophrenia Status: Acute Interventions: 12/08/17 11:33 * Assess/adjust medications daily and /or as needed * See patient on an individual basis 7x/week to assess status of hallucinations * Discuss risks, benefits, side effects and alternatives of medications * <Sherrie Church - Last Filed: 12/09/17 09:41> Family Contact Family involvement: Patient does not wish Family/SO involvement Family contact: Patient declines to allow family contact at present - Goals for Treatment Patient goals for treatment: "I want to go back [facility]." Discharge/Continuing Care - Education Needs Education Needs: Patient Medication, Patient Coping Skills, Patient Community resources, Patient Aftercare Safety Plan - Discharge Discharge Criteria: Free of Suicidal thoughts, Free of paranoid thoughts, Normal sleep pattern, Ability to care for self, Reduction of target symptoms Discharge to:: Home - Treatment Team Participation Discussed with Family/SO: No Was Patient/Family/SO present at Treatment Team Meeting: Yes
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
[2017-12-08] MEDS: Divalproex 250 mg DR Tab PO SCH ×2 (10:43→17:15)
[2017-12-09] MEDS: Divalproex 250 mg DR Tab PO SCH ×2 (09:37→17:36)
[2017-12-10 06:49] VITALS: TEMP 98.1
[2017-12-10] MEDS: Divalproex 250 mg DR Tab PO SCH ×2 (09:09→17:54)
[2017-12-10 17:53] VITALS: O2SAT 99
--- NOTE | 2017-12-10 20:49 | PCM.PYCHPN ---
Psychiatric Progress Note - Psychiatric Progress Note Patient seen today, length of contact: 15 min Patient Chief Complaint: "I can leave soon" Problems Identified/Issues Discussed: The pt is seen, chart reviewed, case discussed with staff. The pt is compliant with medications and reports no side-effects. Symptoms are improving but needs more time to stabilize. After care discussed, support and psychoeducation given. She is odd and psychotic, low insight [place] used Medication Change: Yes (detox changes daily) Medical Record Reviewed: Yes Mental Status Examination - Cognitive Function Orientation: Person, Place, Situation, Time Memory: Impaired Attention: Poor Concentration: Poor Association: Loose Fund of Knowledge: Poor - Mood Mood: Depressed, Anxious - Affect Affect: Broad - Speech Speech: Appropriate - Formal Thought Process Formal Thought Process: Hallucinations, Delusions, Paranoia, Loosening of associations - Suicidal Ideation Suicidal Ideation: No - Homicidal Ideation Homicidal Ideation: No Goal/Treatment Plan - Goal/Treatment Plan Need for Continued Stay: Discharge may exacerbated symptoms, Severe functional impairment Progress Toward Problem(s) and Goals/Treatment Plan: Continue medications Support and psychoeducation daily Attend groups and activities daily After care planning by JOHN
--- NOTE | 2017-12-11 06:19 | PCM.PYCHPN ---
Psychiatric Progress Note - Psychiatric Progress Note Patient seen today, length of contact: 15 min Patient Chief Complaint: "I am alright" Problems Identified/Issues Discussed: The pt is seen, chart reviewed, case discussed with staff. Support given, CBT and [place] used briefly No new symptoms reported, improving slowly and needs more time No SEs from medications, risks discussed. After care discussed She put in a 48-hr notice but then retracted Medication Change: Yes (detox changes daily) Medical Record Reviewed: Yes Mental Status Examination - Cognitive Function Orientation: Person, Place, Situation, Time Memory: Impaired Attention: Poor Concentration: Poor Association: Loose Fund of Knowledge: Poor - Mood Mood: Depressed, Anxious - Affect Affect: Broad - Speech Speech: Appropriate - Formal Thought Process Formal Thought Process: Hallucinations, Delusions, Paranoia, Loosening of associations - Suicidal Ideation Suicidal Ideation: No - Homicidal Ideation Homicidal Ideation: No Goal/Treatment Plan - Goal/Treatment Plan Need for Continued Stay: Discharge may exacerbated symptoms, Severe functional impairment Progress Toward Problem(s) and Goals/Treatment Plan: Continue medications Support and psychoeducation daily Attend groups and activities daily After care planning by JOHN
[2017-12-11] MEDS: Divalproex 250 mg DR Tab PO SCH ×2 (09:49→17:23)
--- NOTE | 2017-12-11 11:20 | PCM.PYCHPN ---
Psychiatric Progress Note - Psychiatric Progress Note Patient seen today, length of contact: 15 min Patient Chief Complaint: I am still hearing voices.' Problems Identified/Issues Discussed: ' Patient seen and evaluated, chart reviewed and discussed with the nurse. Patient appears more organized but remained internally preoccupied. She appears less paranoid and less delusional. Patient remained isolated, confined and withdrawn. Patient still reports auditory and visual hallucinations. Patient is compliant with medications and denies any side effects. Symptoms are improving but need more time to stabilize. Support and psychoeducation given. Medication Change: Yes (increase depakote) Medical Record Reviewed: Yes Mental Status Examination - Cognitive Function Orientation: Person, Place, Situation, Time Memory: Impaired Attention: WNL Concentration: Poor Association: Loose Fund of Knowledge: Poor - Mood Mood: Depressed, Anxious - Affect Affect: Broad - Speech Speech: Appropriate - Formal Thought Process Formal Thought Process: Hallucinations, Delusions, Paranoia, Loosening of associations - Suicidal Ideation Suicidal Ideation: No - Homicidal Ideation Homicidal Ideation: No Goal/Treatment Plan - Goal/Treatment Plan Need for Continued Stay: Discharge may exacerbated symptoms, Severe functional impairment Progress Toward Problem(s) and Goals/Treatment Plan: Schizophrenia paranoid type continuous CBT Psychoeducation Supportive therapy, group therapy, individual therapy Risperdal 2 mg PO BID with plan to maximize the dose accordingly Cogentin 1 g PO BID Depakote DR 500 mg by mouth 2 times a day Trazodone 100 mg by mouth daily at bedtime d/c Klonopin 1 mg PO BID Cannabis use disorder severe in remission Psychoeducation Use PR for abstinence
[2017-12-12] MEDS: Divalproex 500 mg DR Tab PO SCH ×2 (09:01→17:46)
[2017-12-13 05:57] VITALS: RESP 18
[2017-12-13] MEDS: Divalproex 500 mg DR Tab PO SCH ×2 (10:42→17:15)
[2017-12-14 09:19] VITALS: BP 93/64; PULSE 87
[2017-12-14] MEDS: Divalproex 500 mg DR Tab PO SCH (10:00)
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
== END 2017-12-14 12:29 | disposition home or self-care (01) | DRG 885 ==
LOC: SUPCPDRO 22:59 → C.ER 22:59 → C.5E 12-08 02:48
PROVIDERS: ADMIT Psychiatry & Neurology Psychiatry; ATTEND Psychiatry & Neurology Psychiatry
PROC: GZHZZZZ Group Psychotherapy (ICD-10-PCS; principal; 2017-12-08)
PROC: GZ58ZZZ Individual Psychotherapy, Cognitive-Behavioral (ICD-10-PCS; 2017-12-08)
PROC: GZ56ZZZ Individual Psychotherapy, Supportive (ICD-10-PCS; 2017-12-08)
DX: F20.0 Paranoid schizophrenia (principal); R45.850 Homicidal ideations; F31.9 Bipolar disorder, unspecified; F12.21 Cannabis dependence, in remission; Z91.14 Patient's other noncompliance with medication regimen; Z90.49 Acquired absence of other specified parts of digestive tract; Z91.5 Personal history of self-harm; Z87.891 Personal history of nicotine dependence

== ENCOUNTER 2018-02-03 13:36 | Emergency (ER) | payer MEDICARE, OTHER ==
[2018-02-03 13:44] VITALS: BMI 31.1
[2018-02-03 13:47] VITALS: BP 94/55; PULSE 97; TEMP 99; O2SAT 100
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
[2018-02-03 15:17] VITALS: RESP 20
== END 2018-02-03 15:15 | disposition left against medical advice (07) ==
LOC: C.ER 13:36
DX: S09.90XA Unspecified injury of head, initial encounter (principal); Y08.89XA Assault by other specified means, initial encounter

== ENCOUNTER 2018-04-03 21:15 | Emergency (ER) | payer MEDICARE, OTHER ==
[2018-04-03 21:16] VITALS: BMI 31.1
[2018-04-03 21:23] VITALS: BP 104/75; PULSE 99; RESP 20; TEMP 98; O2SAT 97
--- NOTE | 2018-04-03 21:51 | C.PDOC ---
History Of Present Illness 37 y/o female brought in by ambulance for complaints of a left lower toothache for 1 hour. Patient has an appointment with her dentist, but could not get in until April. Otherwise she denies any radiation of pain, fever, chills, or discharge from the site. Time Seen by Provider: 04/03/18 21:29 Chief Complaint (Nursing): Dental Pain History Per: Patient History/Exam Limitations: no limitations Onset/Duration Of Symptoms: Days Current Symptoms Are (Timing): Still Present Past Medical History Reviewed: Historical Data, Nursing Documentation, Vital Signs Vital Signs: Last Vital Signs Temp 98 F 04/03/18 21:20 Pulse 99 H 04/03/18 21:20 Resp 20 04/03/18 21:20 BP 104/75 04/03/18 21:20 Pulse Ox 97 04/03/18 21:51 - Medical History PMH: Anxiety, Bipolar Disorder, Depression, Schizophrenia, Seizures (last episode 2013) Denies: Diabetes, Hepatitis, HIV, HTN, Chronic Kidney Disease, Sexually Transmitted Disease Surgical History: Cholecystectomy (2014) - [facility] Procedures GROUP PSYCHOTHERAPY (12/08/17) INDIVID PSYCHOTHERAP NEC (03/30/14) INDIVIDUAL PSYCHOTHERAPY, COGNITIVE-BEHAVIORAL (12/08/17) INDIVIDUAL PSYCHOTHERAPY, SUPPORTIVE (12/08/17) INJECT/INFUSE NEC (01/08/14) MEDICATION MANAGEMENT (05/17/17) OTHER GROUP THERAPY (03/30/14) PSYCHIA INTERV/EVAL NEC (03/22/13) PSYCHIAT DRUG THERAP NEC (11/16/13) Family History: States: No Known Family Hx - Social History Hx Tobacco Use: Yes Hx Alcohol Use: No Hx Substance Use: No - Immunization History Hx Tetanus Toxoid Vaccination: No Hx Influenza Vaccination: No Hx Pneumococcal Vaccination: No Review Of Systems Except As Marked, All Systems Reviewed And Found Negative. Constitutional: Negative for: Fever, Chills ENT: Positive for: Other (left dental pain) Physical Exam - Physical Exam Appears: Non-toxic, No Acute Distress Skin: Normal Color, Warm, Dry Head: Atraumatic, Normacephalic Eye(s): bilateral: Normal Inspection Oral Mucosa: Moist Teeth: Caries (Large dental di in the left lower molar), No Tender To Palpation, No Loose Gingiva: Normal Appearing, No Swelling, No Abscess Throat: Normal, No Erythema, No Exudate Neck: Normal ROM, Supple Chest: Symmetrical Extremity: Bilateral: Atraumatic, Normal Color And Temperature, Normal ROM Neurological/Psych: Oriented x3, Normal Speech ED Course And Treatment O2 Sat by Pulse Oximetry: 97 (RA) Pulse Ox Interpretation: Normal Progress Note: Given ibuprofen and penicillin in the ED. Patient remains afebrile, AAOx3, and is stable for discharge home. Counseled patient regarding diagnosis and the importance of follow up with a dentist. Disposition Counseled Patient/Family Regarding: Diagnosis, Need For Followup, Rx Given - Disposition Referrals: [facility] [Outside] Disposition: HOME/ ROUTINE Disposition Time: 21:50 Condition: STABLE Additional Instructions: Follow up with dentist within 1-2 days. Return o ED if feel worse. Prescriptions: Ibuprofen [Motrin Tab] 600 mg PO Q8 #30 tab Penicillin VK [Penicillin VK Tab] 2 tab PO BID #28 tab Instructions: Tooth Decay, Adult Forms: [facility] (Bangladeshi) - POA Present On Arrival: None - Clinical Impression Clinical Impression: Dental caries - PA / [employer]ANNY / Resident Statement MD/DO has reviewed & agrees with the documentation as recorded. - Scribe Statement The provider has reviewed the documentation as recorded by the Scribe (Mariam Barboza) All medical record entries made by the Scribe were at my direction and personally dictated by me. I have reviewed the chart and agree that the record accurately reflects my personal performance of the history, physical exam, medical decision making, and the department course for this patient. I have also personally directed, reviewed, and agree with the discharge instructions and disposition.
== END 2018-04-03 22:18 | disposition home or self-care (01) ==
LOC: C.ER 21:15
DX: K02.9 Dental caries, unspecified (principal); F20.9 Schizophrenia, unspecified; Z72.0 Tobacco use

== ENCOUNTER 2018-05-19 08:37 | Inpatient (IN) | payer MEDICARE, MEDICAID, OTHER ==
[2018-05-19 08:40] VITALS: BMI 28.3
--- NOTE | 2018-05-19 08:46 | C.PDOC ---
History Of Present Illness 37 y/o female, with PMHx of anxiety, bipolar disorder, depression, schizophrenia, presents to ED for evaluation of hearing multiple voices telling her to hurt other people for the last 2 days. Pt notes she is not compliant with her meds. Denies suicidal thoughts, chest pain, shortness of breath, abdominal pain, n/v/d, constipation, fever, chills, urinary symptoms, or any active physical complaints at this time. Time Seen by Provider: 05/19/18 08:45 Chief Complaint (Nursing): Psychiatric Evaluation History Per: Patient History/Exam Limitations: no limitations Onset/Duration Of Symptoms: Days Current Symptoms Are (Timing): Still Present Involuntary Hold By: None Recent travel outside of the [place]: No Additional History Per: Patient Past Medical History Reviewed: Historical Data, Nursing Documentation, Vital Signs Vital Signs: Last Vital Signs Temp 98.5 F 05/19/18 08:40 Pulse 88 05/19/18 08:40 Resp 18 05/19/18 08:40 BP 104/75 05/19/18 08:40 Pulse Ox 100 05/19/18 08:40 - Medical History PMH: Anxiety, Bipolar Disorder, Depression, Schizophrenia, Seizures (last episode 2013) Denies: Diabetes, Hepatitis, HIV, HTN, Chronic Kidney Disease, Sexually Transmitted Disease Surgical History: Cholecystectomy (2014, stones removed) [facility] Procedures GROUP PSYCHOTHERAPY (12/08/17) INDIVID PSYCHOTHERAP NEC (03/30/14) INDIVIDUAL PSYCHOTHERAPY, COGNITIVE-BEHAVIORAL (12/08/17) INDIVIDUAL PSYCHOTHERAPY, SUPPORTIVE (12/08/17) INJECT/INFUSE NEC (01/08/14) MEDICATION MANAGEMENT (05/17/17) OTHER GROUP THERAPY (03/30/14) PSYCHIA INTERV/EVAL NEC (03/22/13) PSYCHIAT DRUG THERAP NEC (11/16/13) Family History: States: Unknown Family Hx - Social History Hx Tobacco Use: Yes Hx Alcohol Use: No Hx Substance Use: No - Immunization History Hx Tetanus Toxoid Vaccination: No Hx Influenza Vaccination: No Hx Pneumococcal Vaccination: No Review Of Systems Except As Marked, All Systems Reviewed And Found Negative. Constitutional: Negative for: Fever, Chills Cardiovascular: Negative for: Chest Pain, Palpitations Respiratory: Negative for: Cough, Shortness of Breath Gastrointestinal: Negative for: Nausea, Vomiting, Abdominal Pain, Diarrhea, Constipation Genitourinary: Negative for: Dysuria, Frequency, Hematuria Musculoskeletal: Negative for: Neck Pain, Back Pain Neurological: Negative for: Headache, Dizziness Psych: Positive for: Other (hearing voices). Negative for: Suicidal ideation Physical Exam - Physical Exam Appears: Non-toxic, No Acute Distress Skin: Normal Color, Warm, Dry Head: Atraumatic, Normacephalic Eye(s): bilateral: Normal Inspection Oral Mucosa: Moist Neck: Normal ROM, Supple, Other (no meningeal signs) Cardiovascular: Rhythm Regular, No Murmur Respiratory: Normal Breath Sounds, No Rales, No Rhonchi, No Wheezing Gastrointestinal/Abdominal: Soft, No Tenderness Back: No CVA Tenderness Extremity: Normal ROM Neurological/Psych: Oriented x3, Normal Speech, Normal Cranial Nerves, No Cer ebellar Signs, Normal Motor, Normal Sensation Gait: Steady ED Course And Treatment - Laboratory Results Result Diagrams: 05/19/18 09:02 05/19/18 09:02 O2 Sat by Pulse Oximetry: 100 (RA) Pulse Ox Interpretation: Normal Medical Decision Making Medical Decision Makin yr old F w/ hx of schizo not taking her risperdal p/w hallucinations. She notes voices, not visual hallucinations. Auditory hallucinations telling her to hurt people around her, multiple voices telling to hurt people. No meningeal signs or weakness or ingestion. No drugs per pt. Will seek medical clearance, crisis eval. Plan: Blood work Urinalysis 1236 labs unremarkable, medically clear appreciate consult w/ Crisis: to admit to Dr. Ware Disposition - Disposition Disposition Time: 12:00 Condition: GOOD Forms: [facility] (Slovenian) - Clinical Impression Clinical Impression: Schizophrenia - Scribe Statement The provider has reviewed the documentation as recorded by the Scribe KP All medical record entries made by the Scribe were at my direction and personally dictated by me. I have reviewed the chart and agree that the record accurately reflects my personal performance of the history, physical exam, medical decision making, and the department course for this patient. I have also personally directed, reviewed, and agree with the discharge instructions and disposition.
[2018-05-19 09:09] LABS: BASO # 0.1 K/uL (0.0-0.2); EOS # 0.3 K/uL (0.0-0.7); EOS % 4.1 % (0.0-4.0); HEMOGLOBIN 13.7 g/dL (11.0-16.0); LYMPH # 2.8 K/uL (1.0-4.3); LYMPH % 37.7 % (20.0-40.0); MEAN CELL VOLUME 88.6 fL (81.0-99.0); MEAN CORPUSCULAR HEMOGLOBIN 31.3 pg (27.0-31.0); MEAN CORPUSCULAR HGB CONC 35.3 g/dL (33.0-37.0); MONO # 0.4 K/uL (0.0-0.8); MONO % 5.8 % (0.0-10.0); NEUT # 3.9 K/uL (1.8-7.0); NEUT % 51.4 % (50.0-75.0); RBC 4.37 Mil/uL (3.80-5.20); RED CELL DISTRIBUTION WIDTH 13.9 % (11.5-14.5)
[2018-05-19 09:12] LABS: WHITE BLOOD COUNT 7.5 K/uL (4.8-10.8)
[2018-05-19 09:22] LABS: ALB/GLOB RATIO 1.5 (1.0-2.1); ALBUMIN 4.3 g/dL (3.5-5.0); ALT/SGPT 24 U/L (9-52); AST/SGOT 16 U/L (14-36); BLOOD UREA NITROGEN 8 mg/dL (7-17); CALCIUM 9.6 mg/dl (8.6-10.4); GFR NON-AFRICAN AMERICAN > 60
[2018-05-19 09:23] LABS: ACETAMINOPHEN < 10.0 ug/mL (10.0-30.0); SALICYLATE < 1.0 mg/dL 1
[2018-05-19 10:55] LABS: SQUAMOUS EPITHIAL 2 /hpf (0-5); URINE BACTERIA RARE (<OCC); URINE BILIRUBIN NEGATIVE (NEGATIVE); URINE BLOOD NEGATIVE (NEGATIVE); URINE CLARITY Clear (Clear); URINE COLOR Yellow (YELLOW); URINE GLUCOSE (UA) NORMAL (Normal); URINE LEUKOCYTE ESTERASE NEG Leu/uL (Negative); URINE PROTEIN NEGATIVE (NEGATIVE)
[2018-05-19 11:15] LABS: BARBITURATES, UR NEGATIVE (NEGATIVE); BENZODIAZEPINES, UR NEGATIVE (NEGATIVE); OPIATES, UR NEGATIVE (NEGATIVE); PHENCYCLIDINE, UR NEGATIVE (NEGATIVE)
--- NOTE | 2018-05-19 16:22 | PCM.BM ---
<Ever Hussein - Last Filed: 05/19/18 16:19> Treatment Plan Problems - Problems identified on initial assessmt Auditory hallucinations Date Initiated: 05/19/18 Time Initiated: 16:20 Assessment reference: NA Status: Active Treatment assets and liabiliti Patient Assests: cooperative, physically healthy, negotiates basic needs Patient Liabilities: live alone, medical problems (Schizophrenia, Seizures ( last 2013)), legal issue (hx of incarceration) - Milieu Protocol Maintain good personal hygiene: daily Encourage regular showers, every shift Remind patient to perform daily oral care, every shift Assist patient to perform ADL's Conduct patient checks and document Observation sheet: Q15 minutes (For safety) Maintain personal safety: every shift Educate patient to report safety concerns to staff, every shift Monitor environment for contraband/sharps Medication safety: Monitor for expected outcome, potential side effects: every shift, Assess barriers to learning: every shift, Assess readiness for medication education: every shift <Lico Headley - Last Filed: 05/21/18 11:21> - Diagnosis (1) Schizophrenia Status: Acute Interventions: 05/21/18 11:21 * Assess/adjust medications daily and /or as needed * See patient on an individual basis 7x/week to assess status of hallucinations * Discuss risks, benefits, side effects and alternatives of medications * <Sherrie Church - Last Filed: 05/21/18 15:10> Family Contact Family involvement: Patient does not wish Family/SO involvement Family contact: Patient declines to allow family contact at present - Goals for Treatment Patient goals for treatment: "I [facility] to go to [facility]." Discharge/Continuing Care - Education Needs Education Needs: Patient Medication, Patient Diagnosis/Disease Process, Patient Coping Skills, Patient Community resources - Discharge Discharge Criteria: Free of Suicidal thoughts, Free of paranoid thoughts, Normal sleep pattern, Ability to care for self, Reduction of target symptoms Discharge to:: Home - Treatment Team Participation Discussed with Family/SO: No Was Patient/Family/SO present at Treatment Team Meeting: Yes
[2018-05-20] MEDS ORDERED: Pneumococcal 23-Valent Vaccine IM ONE (12:34)
--- NOTE | 2018-05-20 21:32 | PCM.PSYCH ---
Initial Psychiatric Evaluation - Initial Psychiatric Evaluation Type of Admission: Voluntary Legal Status: Capacity Current Medications: Active Medications Generic Name Dose Route Start Last Admin Trade Name Freq PRN Reason Stop Dose Admin Influenza Virus Vaccine 60 mcg 05/23/18 10:00 Fluzone Quad [id number] IM 05/23/18 10:01 .ONCE ONE Past Psychiatric History - Past Psychiatric History Pertinent Medical Hx (Current Medical&Sleep Prob, Allergies): Allergies Allergy/AdvReac Type Severity Reaction Status Date / Time No Known Allergies Allergy Verified 05/19/18 08:39 Risperdal 05/19/18
[2018-05-21 06:03] VITALS: O2SAT 100
--- NOTE | 2018-05-21 11:12 | PCM.PYCHPN ---
Psychiatric Progress Note - Psychiatric Progress Note Patient seen today, length of contact: 15 min Patient Chief Complaint: "I am still hearing voices" Problems Identified/Issues Discussed: Patient seen and evaluated, chart reviewed and discussed with the nurse. Pt reports depressed mood, and reports feelings of hopelessness and helplessness. She still reports irritability and agitation. Pt remained disorganized and internally preoccupied. She remained isolated and withdrawn, and confined to his room. She still reports auditory hallucinations, and paranoia. Patient is compliant with medications and denies any side effects. Symptoms are improving but pt needs more time to stabilize. Support and psychoeducation given. Medication Change: Yes Medical Record Reviewed: Yes Mental Status Examination - Cognitive Function Orientation: Person, Place, Situation, Time Memory: Intact Attention: Poor Concentration: Poor Association: Loose Fund of Knowledge: Poor - Mood Mood: Depressed, Anxious - Affect Affect: Constricted, Depressed - Speech Speech: Soft - Formal Thought Process Formal Thought Process: Hallucinations, Delusions, Paranoia, Loosening of associations - Suicidal Ideation Suicidal Ideation: No - Homicidal Ideation Homicidal Ideation: No Goal/Treatment Plan - Goal/Treatment Plan Need for Continued Stay: Severe depression anxiety, Severe functional impairment Progress Toward Problem(s) and Goals/Treatment Plan: Schizoaffectie disorder bipolar type -CBT -Psychotherapy -Supportive therapy, group therapy, individual therapy -Atarax 25 mg PO Q6 prn -Risperdal 1 mg PO BID -Cogentin 1 mg PO BID -Trazodone 50 mg PO QHS prn -Depakote 250 mg PO BID
[2018-05-21] MEDS: Divalproex 250 mg DR Tab PO SCH ×2 (11:45→18:02)
[2018-05-22] MEDS ORDERED: Pneumococcal 23-Valent Vaccine IM ONE (10:00)
[2018-05-22] MEDS: Divalproex 250 mg DR Tab PO SCH ×2 (10:16→17:59)
[2018-05-23 06:24] VITALS: RESP 20
[2018-05-23] MEDS ORDERED: Pneumococcal 23-Valent Vaccine IM ONE (10:00)
[2018-05-23] MEDS ORDERED: Influenza Vaccine 60 MCG/0.5 ML SYR (3 yr & up) IM ONE (10:00)
[2018-05-23] MEDS: Divalproex 250 mg DR Tab PO SCH ×2 (10:44→19:09)
[2018-05-24 06:48] VITALS: BP 100/65; PULSE 67; TEMP 97.6
[2018-05-24] MEDS: Divalproex 250 mg DR Tab PO SCH (10:16)
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
== END 2018-05-24 11:20 | disposition home or self-care (01) | DRG 885 ==
LOC: C.ER 08:37 → C.9E 14:16 → C.5E 15:34
PROVIDERS: ADMIT Psychiatry & Neurology Psychiatry; ATTEND Psychiatry & Neurology Psychiatry
PROC: GZHZZZZ Group Psychotherapy (ICD-10-PCS; principal; 2018-05-19)
PROC: GZ56ZZZ Individual Psychotherapy, Supportive (ICD-10-PCS; 2018-05-19)
DX: F25.0 Schizoaffective disorder, bipolar type (principal); Z87.891 Personal history of nicotine dependence; Z91.19 Patient's noncompliance with other medical treatment and regimen

== ENCOUNTER 2018-06-06 21:23 | Emergency (ER) | payer MEDICARE, OTHER ==
[2018-06-06 21:23] VITALS: BMI 28.3
[2018-06-06 21:58] VITALS: BP 107/73; PULSE 76; RESP 16; TEMP 97.6; O2SAT 96
== END 2018-06-06 22:51 | disposition left against medical advice (07) ==
LOC: C.ER 21:23
DX: Z02.89 Encounter for other administrative examinations (principal)

== ENCOUNTER 2018-06-28 20:17 | Emergency (ER) | payer MEDICARE, OTHER ==
[2018-06-28 20:18] VITALS: BMI 28.3
== END 2018-06-28 20:20 | disposition left against medical advice (07) ==
LOC: C.ER 20:17
DX: Z02.89 Encounter for other administrative examinations (principal); R44.3 Hallucinations, unspecified

== ENCOUNTER 2018-06-28 20:43 | Emergency (ER) | payer MEDICARE, OTHER ==
[2018-06-28 20:43] VITALS: BMI 28.3
[2018-06-28 20:58] VITALS: BP 104/68; PULSE 84; RESP 20; TEMP 98.7; O2SAT 100
--- NOTE | 2018-06-28 21:03 | C.PDOC ---
History Of Present Illness 37 y/o female with a PMHx of schizophrenia presents to the ED complaining of auditory and visual hallucinations, chronic per patient. Patient denies any suicidal or homicidal ideation. No other complaints offered. Patient is here requesting med refill, has follow-up scheduled for July 02 but states she is unable to wait until appointment. Time Seen by Provider: 06/28/18 21:00 Chief Complaint (Nursing): Psychiatric Evaluation History Per: Patient History/Exam Limitations: no limitations Onset/Duration Of Symptoms: Days Current Symptoms Are (Timing): Still Present Associated Symptoms: denies: Suicidal Thoughts, Suicidal Plan Past Medical History Reviewed: Historical Data, Nursing Documentation, Vital Signs Vital Signs: Last Vital Signs Temp 98.7 F 06/28/18 20:53 Pulse 84 06/28/18 20:53 Resp 20 06/28/18 20:53 BP 104/68 06/28/18 20:53 Pulse Ox 100 06/28/18 20:53 - Medical History PMH: Anxiety, Bipolar Disorder, Depression, Schizophrenia, Seizures (last episode 2013) Denies: Diabetes, Hepatitis, HIV, HTN, Chronic Kidney Disease, Sexually Transmitted Disease Surgical History: Cholecystectomy (2014, stones removed) - [facility] Procedures GROUP PSYCHOTHERAPY (05/19/18) INDIVID PSYCHOTHERAP NEC (03/30/14) INDIVIDUAL PSYCHOTHERAPY, COGNITIVE-BEHAVIORAL (12/08/17) INDIVIDUAL PSYCHOTHERAPY, SUPPORTIVE (05/19/18) INJECT/INFUSE NEC (01/08/14) MEDICATION MANAGEMENT (05/17/17) OTHER GROUP THERAPY (03/30/14) PSYCHIA INTERV/EVAL NEC (03/22/13) PSYCHIAT DRUG THERAP NEC (11/16/13) Family History: States: Unknown Family Hx - Social History Hx Tobacco Use: Yes Hx Alcohol Use: No Hx Substance Use: No - Immunization History Hx Tetanus Toxoid Vaccination: No Hx Influenza Vaccination: No Hx Pneumococcal Vaccination: No Review Of Systems Except As Marked, All Systems Reviewed And Found Negative. Constitutional: Negative for: Fever, Chills Gastrointestinal: Negative for: Nausea, Vomiting Psych: Positive for: Other (Chronic hallucinations). Negative for: Suicidal ideation (or homicidal) Physical Exam - Physical Exam Appears: Non-toxic, No Acute Distress Skin: Normal Color, Warm, Dry Head: Atraumatic, Normacephalic Eye(s): bilateral: Normal Inspection, PERRL, EOMI Oral Mucosa: Moist Neck: Normal ROM Chest: Symmetrical Cardiovascular: Rhythm Regular, No Murmur Respiratory: Normal Breath Sounds, No Accessory Muscle Use Gastrointestinal/Abdominal: Soft, No Tenderness, No Distention Extremity: Bilateral: Atraumatic, Normal Color And Temperature Neurological/Psych: Oriented x3, Normal Speech ED Course And Treatment O2 Sat by Pulse Oximetry: 100 (RA) Pulse Ox Interpretation: Normal Medical Decision Making Medical Decision Making: Impression: 37 y/o female here for crisis eval Plan: Blood work and urinalysis ordered. Shortly after my assessment, patient eloped out of the ER as of 21:27. Disposition - Disposition Disposition: ELOPEMENT - ER ONLY Disposition Time: 21:29 Condition: UNKNOWN Forms: [employer] (Indonesian) - POA Present On Arrival: None - Clinical Impression Clinical Impression: Schizophrenia - Scribe Statement The provider has reviewed the documentation as recorded by the Nicolle Barboza Provider Attestation: All medical record entries made by the Nicolle were at my direction and personally dictated by me. I have reviewed the chart and agree that the record accurately reflects my personal performance of the history, physical exam, medical decision making, and the department course for this patient. I have also personally directed, reviewed, and agree with the discharge instructions and disposition.
== END 2018-06-28 21:30 | disposition left against medical advice (07) ==
LOC: C.ER 20:43
DX: F20.9 Schizophrenia, unspecified (principal); Z72.0 Tobacco use

== ENCOUNTER 2018-07-05 19:12 | Emergency (ER) | payer MEDICARE, OTHER ==
[2018-07-05 19:12] VITALS: BMI 28.3
--- NOTE | 2018-07-05 19:41 | C.PDOC ---
History Of Present Illness The patient presents to the ED for evaluation of toothache and headache which began today. Patient has not taken any medicine for her pain. She denies fever, chills, nausea. Time Seen by Provider: 07/05/18 19:41 Chief Complaint (Nursing): Headache History Per: Patient History/Exam Limitations: no limitations Onset/Duration Of Symptoms: Hrs Current Symptoms Are (Timing): Still Present Severity: Mild Pain Scale Rating Of: 2 Quality: Dull, Aching, "Pain", Other (throbbing ) Preceeding Symptoms: None Associated Symptoms: denies: Nausea Recent travel outside of the [place]: No Additional History Per: Patient Past Medical History Reviewed: Historical Data, Nursing Documentation, Vital Signs Vital Signs: Last Vital Signs Temp 98.8 F 07/05/18 19:24 Pulse 84 07/05/18 19:24 Resp 20 07/05/18 19:24 BP 101/35 L 07/05/18 19:24 Pulse Ox 98 07/05/18 19:24 - Medical History PMH: Anxiety, Bipolar Disorder, Depression, Schizophrenia, Seizures (last episode 2013) Denies: Diabetes, Hepatitis, HIV, HTN, Chronic Kidney Disease, Sexually Transmitted Disease Surgical History: Cholecystectomy (2014, stones removed) - [facility] Procedures GROUP PSYCHOTHERAPY (05/19/18) INDIVID PSYCHOTHERAP NEC (03/30/14) INDIVIDUAL PSYCHOTHERAPY, COGNITIVE-BEHAVIORAL (12/08/17) INDIVIDUAL PSYCHOTHERAPY, SUPPORTIVE (05/19/18) INJECT/INFUSE NEC (01/08/14) MEDICATION MANAGEMENT (05/17/17) OTHER GROUP THERAPY (03/30/14) PSYCHIA INTERV/EVAL NEC (03/22/13) PSYCHIAT DRUG THERAP NEC (11/16/13) Family History: States: Unknown Family Hx - Social History Hx Tobacco Use: Yes Hx Alcohol Use: No Hx Substance Use: No - Immunization History Hx Tetanus Toxoid Vaccination: No Hx Influenza Vaccination: No Hx Pneumococcal Vaccination: No Review Of Systems Constitutional: Negative for: Fever, Chills Eyes: Negative for: Vision Change ENT: Positive for: Mouth Pain Cardiovascular: Negative for: Chest Pain, Palpitations Respiratory: Negative for: Cough, Shortness of Breath Gastrointestinal: Negative for: Nausea, Vomiting, Abdominal Pain Skin: Negative for: Rash, Lesions, Jaundice, Bruising Neurological: Positive for: Headache. Negative for: Weakness, Numbness, Dizziness Physical Exam - Physical Exam Appears: Non-toxic, No Acute Distress Skin: Warm, Dry Head: Normacephalic Ear(s): Bilateral: Normal Oral Mucosa: Moist Teeth: Tender To Palpation, Other (left lower tooth has a missing filling ) Gingiva: Erythema (around left lower tooth ), Tender (mild, around left lower tooth ), No Abscess Throat: No Drooling, Other (clear oropharynx) Neck: Supple ED Course And Treatment O2 Sat by Pulse Oximetry: 98 (on RA) Pulse Ox Interpretation: Normal Progress Note: Urinalysis ordered and reviewed. Reevaluation Time: 20:42 Reassessment Condition: Improved Disposition Counseled Patient/Family Regarding: Studies Performed, Diagnosis, Need For Followup, Rx Given - Disposition Referrals: [facility] [Outside] Disposition Time: 19:41 Condition: FAIR Additional Instructions: Please follow up with a dentist Prescriptions: Naproxen [Naprosyn] 1 tab PO BID PRN #25 tab PRN Reason: Pain Penicillin VK [Penicillin VK Tab] 2 tab PO BID #28 tab Instructions: Dental Pain (DC) Forms: [employer] (German) - Clinical Impression Clinical Impression: Pain, dental - Scribe Statement The provider has reviewed the documentation as recorded by the Scribe (Pattie Titus) Provider Attestation: All medical record entries made by the Scribe were at my direction and personally dictated by me. I have reviewed the chart and agree that the record accurately reflects my personal performance of the history, physical exam, medical decision making, and the department course for this patient. I have also personally directed, reviewed, and agree with the discharge instructions and disposition.
[2018-07-05 19:42] VITALS: BP 101/35; PULSE 84; RESP 20; TEMP 98.8; O2SAT 98
[2018-07-05 20:21] LABS: SQUAMOUS EPITHIAL 1 /hpf (0-5); URINE BACTERIA RARE (<OCC); URINE BILIRUBIN NEGATIVE (NEGATIVE); URINE BLOOD NEGATIVE (NEGATIVE); URINE CLARITY Clear (Clear); URINE COLOR Yellow (YELLOW); URINE GLUCOSE (UA) NORMAL (Normal); URINE HYALINE CAST 0-2 /lpf (0-2); URINE LEUKOCYTE ESTERASE TRACE Leu/uL (Negative); URINE PROTEIN 1+ mg/dL (NEGATIVE)
[2018-07-05 20:23] LABS: HCG,QUALITATIVE URINE NEGATIVE (NEGATIVE)
== END 2018-07-05 20:50 | disposition home or self-care (01) ==
LOC: C.ER 19:12
DX: K08.89 Other specified disorders of teeth and supporting structures (principal)

== ENCOUNTER 2018-07-10 20:09 | Emergency (ER) | payer MEDICARE, OTHER ==
[2018-07-10 20:10] VITALS: BMI 28.3
[2018-07-10 20:19] VITALS: BP 110/70; PULSE 97; RESP 16; TEMP 98.6; O2SAT 97
== END 2018-07-10 21:01 | disposition left against medical advice (07) ==
LOC: C.ER 20:09
DX: Z02.89 Encounter for other administrative examinations (principal); R51 Headache

== ENCOUNTER 2018-08-07 04:14 | Emergency (ER) | payer MEDICARE, MEDICAID ==
[2018-08-07 04:15] VITALS: BMI 28.3
[2018-08-07 04:25] VITALS: BP 115/83; PULSE 82; RESP 18; TEMP 98.3; O2SAT 98
--- NOTE | 2018-08-07 05:01 | C.PDOC ---
History Of Present Illness 37 year old female presents to the ED c/o left sided face pain for the past week and a half. Patient describes her pain as "someone pounding my face". Patient states symptoms associated with runny nose, cough. Patient denies fever, chills, nausea, vomit, injury, fall, trauma, facial swelling. Time Seen by Provider: 08/07/18 04:42 Chief Complaint (Nursing): Abdominal Pain History Per: Patient History/Exam Limitations: no limitations Onset/Duration Of Symptoms: Days Current Symptoms Are (Timing): Still Present Associated Symptoms: denies: Nausea, Vomiting, Diarrhea, Urinary Symptoms Recent travel outside of the [place]: No Additional History Per: Patient Abnormal Vaginal Bleeding: No Past Medical History Reviewed: Historical Data, Nursing Documentation, Vital Signs Vital Signs: Last Vital Signs Temp 98.3 F 08/07/18 04:21 Pulse 82 08/07/18 04:21 Resp 18 08/07/18 04:21 BP 115/83 08/07/18 04:21 Pulse Ox 98 08/07/18 04:21 - Medical History PMH: Anxiety, Bipolar Disorder, Depression, Schizophrenia, Seizures (last episode 2013) Denies: Diabetes, Hepatitis, HIV, HTN, Chronic Kidney Disease, Sexually Transmitted Disease Surgical History: Cholecystectomy (2014, stones removed) - [facility] Procedures GROUP PSYCHOTHERAPY (05/19/18) INDIVID PSYCHOTHERAP NEC (03/30/14) INDIVIDUAL PSYCHOTHERAPY, COGNITIVE-BEHAVIORAL (12/08/17) INDIVIDUAL PSYCHOTHERAPY, SUPPORTIVE (05/19/18) INJECT/INFUSE NEC (01/08/14) MEDICATION MANAGEMENT (05/17/17) OTHER GROUP THERAPY (03/30/14) PSYCHIA INTERV/EVAL NEC (03/22/13) PSYCHIAT DRUG THERAP NEC (11/16/13) Family History: States: Unknown Family Hx - Social History Hx Tobacco Use: Yes Hx Alcohol Use: No Hx Substance Use: No - Immunization History Hx Tetanus Toxoid Vaccination: No Hx Influenza Vaccination: No Hx Pneumococcal Vaccination: No Review Of Systems Constitutional: Negative for: Fever, Chills Eyes: Negative for: Vision Change ENT: Positive for: Mouth Pain. Negative for: Mouth Swelling, Throat Pain, Throat Swelling Cardiovascular: Negative for: Chest Pain, Palpitations Respiratory: Negative for: Shortness of Breath Gastrointestinal: Negative for: Nausea, Vomiting, Abdominal Pain Skin: Negative for: Rash Neurological: Positive for: Headache. Negative for: Weakness, Numbness, Dizzin ess Physical Exam - Physical Exam Appears: Non-toxic, No Acute Distress Skin: Normal Color, Warm, Dry, No Rash Head: Atraumatic, Normacephalic, No Tenderness (sinus tenderess, temporal artery tenderness) Eye(s): bilateral: Normal Inspection Ear(s): Bilateral: Normal Oral Mucosa: Moist Tongue: No Swelling Lips: No Swelling Teeth: Other (left lower 3rd molar cracked) Gingiva: No Swelling, No Bleeding, No Abscess Throat: Normal, No Erythema, No Exudate Neck: Normal ROM, Supple Chest: Symmetrical Cardiovascular: Rhythm Regular Respiratory: Normal Breath Sounds, No Rales, No Rhonchi, No Wheezing Extremity: Normal ROM, No Tenderness, No Swelling Neurological/Psych: Oriented x3, Normal Speech, Normal Cognition Gait: Steady ED Course And Treatment - Laboratory Results Lab Interpretation: Normal O2 Sat by Pulse Oximetry: 98 (ON RA) Pulse Ox Interpretation: Normal Medical Decision Making Medical Decision Making: Plan: * Amoxicillin 500 mg PO * Motrin 600 mg PO * UA Disposition - Disposition Referrals: Tyrell Ng DMD [Staff Provider] - Disposition: HOME/ ROUTINE Disposition Time: 05:45 Condition: STABLE Additional Instructions: Follow up with the medical doctor within 1-2 days. Return if worsened. Prescriptions: Amoxicillin [Amoxil 500 mg Cap] 500 mg PO TID #29 cap Ibuprofen [Motrin] 600 mg PO TID #21 tab Instructions: Dental Pain (DC) Forms: [employer] (Iraqi) - Clinical Impression Clinical Impression: Toothache, Headache - PA / [employer] / Resident Statement MD/DO has reviewed & agrees with the documentation as recorded. - Scribe Statement The provider has reviewed the documentation as recorded by the Scribe Ortega Ayoub All medical record entries made by the Scribe were at my direction and personally dictated by me. I have reviewed the chart and agree that the record accurately reflects my personal performance of the history, physical exam, medical decision making, and the department course for this patient. I have also personally directed, reviewed, and agree with the discharge instructions and disposition.
[2018-08-07 05:07] LABS: SQUAMOUS EPITHIAL 3 /hpf (0-5); URINE BACTERIA RARE (<OCC); URINE BILIRUBIN NEGATIVE (NEGATIVE); URINE CLARITY Clear (Clear); URINE COLOR Yellow (YELLOW); URINE GLUCOSE (UA) NORMAL (Normal); URINE LEUKOCYTE ESTERASE NEG Leu/uL (Negative); URINE PROTEIN NEGATIVE (NEGATIVE)
[2018-08-07 05:08] LABS: HCG,QUALITATIVE URINE NEGATIVE (NEGATIVE); URINE BLOOD NEGATIVE (NEGATIVE)
[2018-08-07] MEDS ORDERED: Amoxicillin-Clav 500-125 mg Tab PO ONE (05:20)
== END 2018-08-07 05:50 | disposition home or self-care (01) ==
LOC: C.ER 04:14
DX: R51 Headache (principal); K08.89 Other specified disorders of teeth and supporting structures

== ENCOUNTER 2018-08-10 02:58 | Emergency (ER) | payer MEDICARE, MEDICAID ==
[2018-08-10 02:58] VITALS: BMI 28.3
[2018-08-10 03:10] VITALS: RESP 16; O2SAT 100
--- NOTE | 2018-08-10 03:45 | C.PDOC ---
History Of Present Illness 37 year old female presents to the ED c/o headache that started 30 minutes ago. Patient states this is not the worse headache of her life, patient has not taken any medications for it. Patient denies fever, chills, nausea, vomit, dizziness, visual changes, neck stiffness, weakness, numbness, Time Seen by Provider: 08/10/18 03:11 Chief Complaint (Nursing): Headache History Per: Patient History/Exam Limitations: no limitations Onset/Duration Of Symptoms: Mins (30) Current Symptoms Are (Timing): Still Present Quality: "Pain" Recent travel outside of the [place]: No Additional History Per: Patient Past Medical History Reviewed: Historical Data, Nursing Documentation, Vital Signs Vital Signs: Last Vital Signs Temp 98.9 F 08/10/18 03:06 Pulse 98 H 08/10/18 03:06 Resp 16 08/10/18 03:06 BP 114/68 08/10/18 03:06 Pulse Ox 100 08/10/18 03:06 - Medical History PMH: Anxiety, Bipolar Disorder, Depression, Schizophrenia, Seizures (last episode 2013) Denies: Diabetes, Hepatitis, HIV, HTN, Chronic Kidney Disease, Sexually Transmitted Disease Surgical History: Cholecystectomy (2014, stones removed) [place] [facility] Procedures GROUP PSYCHOTHERAPY (05/19/18) INDIVID PSYCHOTHERAP NEC (03/30/14) INDIVIDUAL PSYCHOTHERAPY, COGNITIVE-BEHAVIORAL (12/08/17) INDIVIDUAL PSYCHOTHERAPY, SUPPORTIVE (05/19/18) INJECT/INFUSE NEC (01/08/14) MEDICATION MANAGEMENT (05/17/17) OTHER GROUP THERAPY (03/30/14) PSYCHIA INTERV/EVAL NEC (03/22/13) PSYCHIAT DRUG THERAP NEC (11/16/13) Family History: States: Unknown Family Hx - Social History Hx Tobacco Use: Yes Hx Alcohol Use: No Hx Substance Use: No - Immunization History Hx Tetanus Toxoid Vaccination: No Hx Influenza Vaccination: No Hx Pneumococcal Vaccination: No Review Of Systems Constitutional: Negative for: Fever, Chills Eyes: Negative for: Vision Change Cardiovascular: Negative for: Chest Pain Respiratory: Negative for: Cough, Shortness of Breath Gastrointestinal: Negative for: Nausea, Vomiting, Abdominal Pain Skin: Negative for: Rash Neurological: Positive for: Headache. Negative for: Weakness, Numbness, Dizziness Physical Exam - Physical Exam Appears: Non-toxic, No Acute Distress Skin: Normal Color, Warm, Dry Head: Atraumatic, Normacephalic Eye(s): bilateral: Normal Inspection, PERRL, EOMI Neck: Normal ROM, No Midline Cervical Tenderness, Supple Chest: Symmetrical Cardiovascular: Rhythm Regular Respiratory: Normal Breath Sounds, No Rales, No Rhonchi, No Wheezing Gastrointestinal/Abdominal: Soft, No Tenderness, No Guarding, No Rebound Extremity: Normal ROM, No Tenderness, No Swelling Neurological/Psych: Oriented x3, Normal Speech, Normal Cognition Gait: Steady ED Course And Treatment O2 Sat by Pulse Oximetry: 100 (ON RA) Pulse Ox Interpretation: Normal - CT Scan/US CT head Other Rad Studies (CT/US): Read By Radiologist, Radiology Report Reviewed CT/US Interpretation: CT SCAN OF THE BRAIN WITHOUT IV CONTRAST. CLINICAL INDICATION: Rule out intracranial hemorrhage. TECHNIQUE: Axial and reformatted sagittal and coronal images of the brain obtained without IV contrast administration. Normal size of the ventricles and extra-axial spaces for the patient's age. Normal white matter tracts of the supratentorial brain. Normal basal ganglia and thalami. Normal brainstem. Normal cerebellum. There is no demonstrated extra-axial, intraparenchymal, or intraventricular hemorrhage. There are no findings of an acute ischemic infarction. Normal calvarium. There is no demonstrated fracture. Normal soft tissue structures. Moderate chronic mucosal inflammatory changes of the maxillary sinuses and ethmoid air cells. Normal remaining visualized paranasal sinuses. IMPRESSION: Normal unenhanced CT scan of the brain. . Electronically signed on Aug 10, 2018 4:25:18 AM EST by: Dona Pham M.D., Certified by ABR, MSK, Neuroradiology. Medical Decision Making Medical Decision Making: Plan: * CT head Disposition - Disposition Referrals: [facility] Ladarius Crisostomo, [Non-Staff] - Disposition: HOME/ ROUTINE Disposition Time: 04:20 Condition: GOOD Additional Instructions: MARCO AREVALO, thank you for letting us take care of you today. The emergency medical care you received today was directed at your acute symptoms. If you were prescribed any medication, please fill it and take as directed. It may take several days for your symptoms to resolve. Return to the Emergency Department if your symptoms worsen, do not improve, or if you have any other problems. Please contact your doctor or call one of the physicians/clinics you have been referred to that are listed on the Patient Visit Information form that is included in your discharge packet. Bring any paperwork you were given at discharge with you along with any medications you are taking to your follow up visit. Our treatment cannot replace ongoing medical care by a primary care provider outside of the emergency department. Thank you for allowing the [employer] team to be part of your care today. Follow up with your primary care doctor in 2-3 days for re-evaluation and further management. Prescriptions: Ibuprofen [Motrin] 600 mg PO Q6 PRN #20 tab PRN Reason: Pain, Moderate (4-7) Instructions: Headache, Adult (DC) Forms: [employer] (Kyrgyz) - Clinical Impression Clinical Impression: Headache - Scribe Statement The provider has reviewed the documentation as recorded by the Scribe Ortega Ayoub All medical record entries made by the Scribe were at my direction and personally dictated by me. I have reviewed the chart and agree that the record accurately reflects my personal performance of the history, physical exam, medical decision making, and the department course for this patient. I have also personally directed, reviewed, and agree with the discharge instructions and disposition.
[2018-08-10 05:06] VITALS: BP 118/72; PULSE 88; TEMP 98.5
--- NOTE | 2018-08-10 08:25 | CT ---
Date of service: 08/10/2018 PROCEDURE: CT HEAD WITHOUT CONTRAST. HISTORY: r/o ICH COMPARISON: None available. TECHNIQUE: Axial computed tomography images were obtained through the head/brain without intravenous contrast. Radiation dose: Total exam DLP = 1054.86 mGy-cm. This CT exam was performed using one or more of the following dose reduction techniques: Automated exposure control, adjustment of the mA and/or kV according to patient size, and/or use of iterative reconstruction technique. FINDINGS: HEMORRHAGE: No intracranial hemorrhage. BRAIN: Love-white matter differentiation is preserved. There is no mass, mass effect or abnormal extra-axial fluid collection. There is no territorial infarction. The midline sagittal structures are normal. VENTRICLES: The ventricles are normal in size, shape and configuration. CALVARIUM: There is no calvarial fracture or extracranial soft tissue swelling. PARANASAL SINUSES: Predominantly clear. MASTOID AIR CELLS: There is moderate polypoid mucosal thickening in the visualized right maxillary sinus and mild mucosal thickening in the left maxillary sinus and ethmoid air cells. OTHER FINDINGS: None. IMPRESSION: No acute intracranial abnormality. A preliminary report was provided by [employer].
== END 2018-08-10 05:05 | disposition home or self-care (01) ==
LOC: C.ER 02:58
DX: R51 Headache (principal)

== ENCOUNTER 2018-08-12 21:01 | Emergency (ER) | payer MEDICARE, MEDICAID ==
[2018-08-12 21:02] VITALS: BMI 28.3
[2018-08-12 21:25] VITALS: BP 95/62; PULSE 94; RESP 16; TEMP 97.9; O2SAT 99
--- NOTE | 2018-08-12 21:59 | C.PDOC ---
History Of Present Illness 37 year old female presents to the ER with a complaint of pain to the left lower jaw and teeth that radiates up to her head over the past 2-3 days. Patient reports that she has an appointment with her dentist. Denies fever, trauma, neck pain, . Time Seen by Provider: 08/12/18 21:20 Chief Complaint (Nursing): Dental Pain History Per: Patient History/Exam Limitations: no limitations Onset/Duration Of Symptoms: Days Current Symptoms Are (Timing): Still Present Recent travel outside of the [place]: No Past Medical History Reviewed: Historical Data, Nursing Documentation, Vital Signs Vital Signs: Last Vital Signs Temp 97.9 F 08/12/18 21:13 Pulse 94 H 08/12/18 21:13 Resp 16 08/12/18 21:13 BP 95/62 L 08/12/18 21:13 Pulse Ox 99 08/12/18 21:13 - Medical History PMH: Anxiety, Bipolar Disorder, Depression, Schizophrenia, Seizures (last episode 2013) Denies: Diabetes, Hepatitis, HIV, HTN, Chronic Kidney Disease, Sexually Transmitted Disease Surgical History: Cholecystectomy (2014, stones removed) - [facility] Procedures GROUP PSYCHOTHERAPY (05/19/18) INDIVID PSYCHOTHERAP NEC (03/30/14) INDIVIDUAL PSYCHOTHERAPY, COGNITIVE-BEHAVIORAL (12/08/17) INDIVIDUAL PSYCHOTHERAPY, SUPPORTIVE (05/19/18) INJECT/INFUSE NEC (01/08/14) MEDICATION MANAGEMENT (05/17/17) OTHER GROUP THERAPY (03/30/14) PSYCHIA INTERV/EVAL NEC (03/22/13) PSYCHIAT DRUG THERAP NEC (11/16/13) Family History: States: Unknown Family Hx - Social History Hx Tobacco Use: Yes Hx Alcohol Use: No Hx Substance Use: No - Immunization History Hx Tetanus Toxoid Vaccination: No Hx Influenza Vaccination: No Hx Pneumococcal Vaccination: No Review Of Systems Constitutional: Negative for: Fever, Chills ENT: Positive for: Other (Pain and swelling to left lower jaw) Physical Exam - Physical Exam Appears: Non-toxic Skin: Normal Color, Warm, Dry Head: Atraumatic, Normacephalic, Swelling (Left lower mandible) Eye(s): bilateral: Normal Inspection Ear(s): Bilateral: Normal Nose: Normal Oral Mucosa: Moist Throat: Normal, No Erythema, No Exudate Neck: Normal, No Midline Cervical Tenderness, No Paracervical Tenderness, Supple Chest: Symmetrical, No Tenderness Cardiovascular: Rhythm Regular, No Friction Rub, No Murmur Extremity: Normal ROM Neurological/Psych: Oriented x3, Normal Speech Gait: Steady ED Course And Treatment O2 Sat by Pulse Oximetry: 99 (Room air) Pulse Ox Interpretation: Normal Medical Decision Making Medical Decision Making: Motrin administered. Patient started on amoxicillin, she is resting comfortably in the ER in no acute distress, vitals are stable, will discharge home with Rx and instructions to follow up with dentist. Disposition - Disposition Referrals: Tyrell Ng, MARIA A [Staff Provider] - Disposition: HOME/ ROUTINE Disposition Time: 21:56 Condition: STABLE Additional Instructions: Follow up with the dentist within 1-2 days. return if worsened. Prescriptions: Amoxicillin [Amoxil 500 mg Cap] 500 mg PO TID #29 cap Ibuprofen [Motrin Tab] 800 mg PO TID #20 tab Instructions: Tooth Decay, Adult (DC), Dental Pain (DC) Forms: [employer] (Welsh) - Clinical Impression Clinical Impression: Dental caries - PA / STERILE SUPERVISOR / Resident Statement MD/DO has reviewed & agrees with the documentation as recorded. - Scribe Statement The provider has reviewed the documentation as recorded by the Scribe Hugh Reich All medical record entries made by the Scribe were at my direction and personally dictated by me. I have reviewed the chart and agree that the record accurately reflects my personal performance of the history, physical exam, medical decision making, and the department course for this patient. I have also personally directed, reviewed, and agree with the discharge instructions and disposition.
== END 2018-08-12 22:00 | disposition home or self-care (01) ==
LOC: C.ER 21:01
DX: K02.9 Dental caries, unspecified (principal); F20.9 Schizophrenia, unspecified; Z72.0 Tobacco use

== ENCOUNTER 2018-08-17 21:33 | Emergency (ER) | payer MEDICARE, MEDICAID ==
[2018-08-17 21:33] VITALS: BMI 28.3
[2018-08-17 21:47] VITALS: BP 100/70; PULSE 87; TEMP 98; O2SAT 99
--- NOTE | 2018-08-17 22:18 | C.PDOC ---
History Of Present Illness 37 year old female presents to the ER with a complaint of pain to the left facial area that worsens when she opens and closes her mouth. Pt reports a chronic h/o of same. Denies dental pain or injury. Time Seen by Provider: 08/17/18 22:01 Chief Complaint (Nursing): Dental Pain History Per: Patient History/Exam Limitations: no limitations Onset/Duration Of Symptoms: Days Current Symptoms Are (Timing): Still Present Recent travel outside of the [place]: No Past Medical History Reviewed: Historical Data, Nursing Documentation, Vital Signs Vital Signs: Last Vital Signs Temp 98 F 08/17/18 21:37 Pulse 87 08/17/18 21:37 Resp 14 08/17/18 21:37 BP 100/70 08/17/18 21:37 Pulse Ox 99 08/17/18 21:37 - Medical History PMH: Anxiety, Bipolar Disorder, Depression, Schizophrenia, Seizures (last ep isode 2013) Denies: Diabetes, Hepatitis, HIV, HTN, Chronic Kidney Disease, Sexually Transmitted Disease Surgical History: Cholecystectomy (2014, stones removed) - [facility] Procedures GROUP PSYCHOTHERAPY (05/19/18) INDIVID PSYCHOTHERAP NEC (03/30/14) INDIVIDUAL PSYCHOTHERAPY, COGNITIVE-BEHAVIORAL (12/08/17) INDIVIDUAL PSYCHOTHERAPY, SUPPORTIVE (05/19/18) INJECT/INFUSE NEC (01/08/14) MEDICATION MANAGEMENT (05/17/17) OTHER GROUP THERAPY (03/30/14) PSYCHIA INTERV/EVAL NEC (03/22/13) PSYCHIAT DRUG THERAP NEC (11/16/13) Family History: States: Unknown Family Hx - Social History Hx Tobacco Use: Yes Hx Alcohol Use: No Hx Substance Use: No - Immunization History Hx Tetanus Toxoid Vaccination: No Hx Influenza Vaccination: No Hx Pneumococcal Vaccination: No Review Of Systems ENT: Negative for: Other (Dental pain) Musculoskeletal: Positive for: Other (Left facial pain) Physical Exam - Physical Exam Appears: Non-toxic Skin: Normal Color, Warm, Dry Head: Atraumatic, Normacephalic, Tenderness (Left TMJ), No Swelling Eye(s): bilateral: Normal Inspection Ear(s): Bilateral: Normal Oral Mucosa: Moist Tongue: Normal Appearing Lips: Normal Appearing Teeth: No Tender To Palpation Gingiva: Normal Appearing Neck: Normal, No Midline Cervical Tenderness, No Paracervical Tenderness, Supple Neurological/Psych: Oriented x3, Normal Speech ED Course And Treatment O2 Sat by Pulse Oximetry: 99 (Room air) Pulse Ox Interpretation: Normal Progress Note: Patient is resting comfortably in the ER in no acute distress, vitals are stable, will discharge home with Rx and instructions to follow up with PMD/dentist. Disposition Counseled Patient/Family Regarding: Diagnosis, Need For Followup, Rx Given - Disposition Referrals: Saúl Titus MD [Staff Provider] - dental clinic, PMD [Other] Disposition: HOME/ ROUTINE Disposition Time: 22:17 Condition: STABLE Additional Instructions: Please follow up with PMD Take medication as directed Return to ER if worse Prescriptions: Ibuprofen [Motrin Tab] 800 mg PO QID #20 tab Instructions: Temporomandibular Joint (TMJ) Disorders (DC) Forms: [employer] (Afghan) - Clinical Impression Clinical Impression: Temporomandibular joint (TMJ) pain - PA / CEO AND PRESIDENT / Resident Statement MD/DO has reviewed & agrees with the documentation as recorded. - Scribe Statement The provider has reviewed the documentation as recorded by the Scribhero Reich All medical record entries made by the Dianaibhero were at my direction and personally dictated by me. I have reviewed the chart and agree that the record accurately reflects my personal performance of the history, physical exam, medical decision making, and the department course for this patient. I have also personally directed, reviewed, and agree with the discharge instructions and disposition.
[2018-08-17 22:57] VITALS: RESP 20
== END 2018-08-17 22:56 | disposition home or self-care (01) ==
LOC: C.ER 21:33
DX: M26.609 Unspecified temporomandibular joint disorder, unspecified side (principal)

== ENCOUNTER 2018-08-18 00:41 | Emergency (ER) | payer MEDICARE, MEDICAID ==
[2018-08-18 00:42] VITALS: BMI 28.3
== END 2018-08-18 00:42 | disposition left against medical advice (07) ==
LOC: C.ER 00:41
DX: Z02.89 Encounter for other administrative examinations (principal); R51 Headache

== ENCOUNTER 2018-09-03 02:22 | Emergency (ER) | payer MEDICARE, MEDICAID ==
[2018-09-03 02:23] VITALS: BMI 28.3
[2018-09-03 02:44] VITALS: BP 96/62; PULSE 94; RESP 22; TEMP 97.9; O2SAT 100
--- NOTE | 2018-09-03 03:04 | C.PDOC ---
History Of Present Illness 37 year old female presents to the ED for evaluation of auditory hallucinations for the past 2 days. Patient reports she has been hearing voices that tell her to be outside. Patient stopped taking her medications about a year ago. Patient denies SI/HI, visual hallucinations, injury, fall, trauma. Chief Complaint (Nursing): Psychiatric Evaluation History Per: Patient History/Exam Limitations: no limitations Onset/Duration Of Symptoms: Days (2) Current Symptoms Are (Timing): Still Present Suicide/Self Injury Attempted (Context): None Modifying Factor(s): None Associated Symptoms: Paranoia. denies: Depression, Suicidal Thoughts, Suicidal Plan Recent travel outside of the [place]: No Additional History Per: Patient Past Medical History Reviewed: Historical Data, Nursing Documentation, Vital Signs Vital Signs: Last Vital Signs Temp 97.9 F 09/03/18 02:31 Pulse 94 H 09/03/18 02:31 Resp 22 09/03/18 02:31 BP 96/62 L 09/03/18 02:31 Pulse Ox 100 09/03/18 02:31 - Medical History PMH: Anxiety, Bipolar Disorder, Depression, Schizophrenia, Seizures (last episode 2013) Denies: Diabetes, Hepatitis, HIV, HTN, Chronic Kidney Disease, Sexually Transmitted Disease Surgical History: Cholecystectomy (2014, stones removed) - [employer] Procedures GROUP PSYCHOTHERAPY (05/19/18) INDIVID PSYCHOTHERAP NEC (03/30/14) INDIVIDUAL PSYCHOTHERAPY, COGNITIVE-BEHAVIORAL (12/08/17) INDIVIDUAL PSYCHOTHERAPY, SUPPORTIVE (05/19/18) INJECT/INFUSE NEC (01/08/14) MEDICATION MANAGEMENT (05/17/17) OTHER GROUP THERAPY (03/30/14) PSYCHIA INTERV/EVAL NEC (03/22/13) PSYCHIAT DRUG THERAP NEC (11/16/13) Family History: States: Unknown Family Hx - Social History Hx Tobacco Use: Yes Hx Alcohol Use: No Hx Substance Use: No - Immunization History Hx Tetanus Toxoid Vaccination: No Hx Influenza Vaccination: No Hx Pneumococcal Vaccination: No Review Of Systems Constitutional: Negative for: Fever, Chills Cardiovascular: Negative for: Chest Pain, Palpitations Respiratory: Negative for: Shortness of Breath Gastrointestinal: Negative for: Nausea, Vomiting, Abdominal Pain Skin: Negative for: Rash Psych: Positive for: Psychosis. Negative for: Depression, Suicidal ideation Physical Exam - Physical Exam Appears: Non-toxic, No Acute Distress Skin: Normal Color, Warm, Dry Head: Atraumatic, Normacephalic Eye(s): bilateral: Normal Inspection Neck: Normal ROM, Supple Chest: Symmetrical Cardiovascular: Rhythm Regular Respiratory: Normal Breath Sounds, No Rales, No Rhonchi, No Wheezing Gastrointestinal/Abdominal: Soft, No Tenderness, No Guarding, No Rebound Extremity: Normal ROM, No Tenderness, No Swelling Neurological/Psych: Oriented x3, Normal Speech, Normal Cognition Gait: Steady ED Course And Treatment O2 Sat by Pulse Oximetry: 100 (ON RA) Pulse Ox Interpretation: Normal Medical Decision Making Medical Decision Making: Plan: * Labs * UA * Crisis eval Upon crisis eval patient states she is not hearing voices anymore, requests to stay in the ED until morning. Disposition Counseled Patient/Family Regarding: Diagnosis - Disposition Referrals: [facility] [Outside] Disposition: HOME/ ROUTINE Disposition Time: 04:34 Condition: STABLE Instructions: Schizophrenia Forms: [employer] (Setswana) - POA Present On Arrival: None - Clinical Impression Clinical Impression: Hallucination - Scribe Statement The provider has reviewed the documentation as recorded by the Scribe Ortega Ayoub All medical record entries made by the Scribe were at my direction and personally dictated by me. I have reviewed the chart and agree that the record accurately reflects my personal performance of the history, physical exam, medical decision making, and the department course for this patient. I have also personally directed, reviewed, and agree with the discharge instructions and disposition.
== END 2018-09-03 04:15 | disposition home or self-care (01) ==
LOC: C.ER 02:22
DX: R44.3 Hallucinations, unspecified (principal)

== ENCOUNTER 2018-10-08 17:16 | Inpatient (IN) | payer MEDICARE, MEDICAID ==
[2018-10-08 17:44] VITALS: BMI 27.3
--- NOTE | 2018-10-08 18:20 | C.PDOC ---
History Of Present Illness 38 year old female presents to the ED for psychiatric evaluation. Patient reports hearing voices that are telling her to harm herself. Patient denies suicidal plan or homicidal ideation. Time Seen by Provider: 10/08/18 17:19 Chief Complaint (Nursing): Psychiatric Evaluation History Per: Patient History/Exam Limitations: no limitations Onset/Duration Of Symptoms: Hrs Current Symptoms Are (Timing): Still Present Suicide/Self Injury Attempted (Context): None Associated Symptoms: Suicidal Thoughts. denies: Suicidal Plan Involuntary Hold By: None Recent travel outside of the [place]: No Additional History Per: Patient Past Medical History Reviewed: Historical Data, Nursing Documentation, Vital Signs Vital Signs: Last Vital Signs Temp 99.1 F 10/08/18 17:25 Pulse 96 H 10/08/18 17:25 Resp 20 10/08/18 17:25 BP 110/73 10/08/18 17:25 Pulse Ox 96 10/08/18 17:25 - Medical History PMH: Anxiety, Bipolar Disorder, Depression, Schizophrenia, Seizures (last episode 2013) Denies: Diabetes, Hepatitis, HIV, HTN, Chronic Kidney Disease, Sexually Transmitted Disease Surgical History: Cholecystectomy (2014, stones removed) - [employer] Procedures GROUP PSYCHOTHERAPY (05/19/18) INDIVID PSYCHOTHERAP NEC (03/30/14) INDIVIDUAL PSYCHOTHERAPY, COGNITIVE-BEHAVIORAL (12/08/17) INDIVIDUAL PSYCHOTHERAPY, SUPPORTIVE (05/19/18) INJECT/INFUSE NEC (01/08/14) MEDICATION MANAGEMENT (05/17/17) OTHER GROUP THERAPY (03/30/14) PSYCHIA INTERV/EVAL NEC (03/22/13) PSYCHIAT DRUG THERAP NEC (11/16/13) Family History: States: Unknown Family Hx - Social History Hx Tobacco Use: Yes Hx Alcohol Use: No Hx Substance Use: No - Immunization History Hx Tetanus Toxoid Vaccination: No Hx Influenza Vaccination: No Hx Pneumococcal Vaccination: No Review Of Systems Psych: Positive for: Suicidal ideation, Other (auditory hallucinations. no suicidal plan or homicidal ideation ) Physical Exam - Physical Exam Appears: Non-toxic, No Acute Distress Skin: Normal Color, Warm, Dry Head: Atraumatic, Normacephalic Eye(s): bilateral: Normal Inspection Oral Mucosa: Moist Neck: Supple Chest: Symmetrical, No Deformity, No Tenderness Cardiovascular: Rhythm Regular, No Murmur Respiratory: Normal Breath Sounds, No Rales, No Rhonchi, No Wheezing Extremity: Normal ROM, Capillary Refill (less than 2 seconds ) Neurological/Psych: Oriented x3, Normal Speech, Normal Cognition ED Course And Treatment - Laboratory Results Result Diagrams: 10/08/18 18:12 10/08/18 18:12 O2 Sat by Pulse Oximetry: 96 (on RA ) Pulse Ox Interpretation: Normal Medical Decision Making Medical Decision Making: Progress: Bloodwork and urinalysis ordered. Patient placed on one-to-one ED observation. Disposition - Disposition Disposition Time: 18:58 Condition: STABLE Forms: [employer] (Chinese) - Clinical Impression Clinical Impression: Schizophrenia - PA / FUNDS DEVELOPMENT DIRECTOR / Resident Statement MD/DO has reviewed & agrees with the documentation as recorded. - Scribe Statement The provider has reviewed the documentation as recorded by the Scribe (Pattie Titus) All medical record entries made by the Scribe were at my direction and personally dictated by me. I have reviewed the chart and agree that the record accurately reflects my personal performance of the history, physical exam, medical decision making, and the department course for this patient. I have also personally directed, reviewed, and agree with the discharge instructions and disposition. Physician Patient Turnover Patient Signed Over To: Fay Mcnair Handoff Comments: Pending crisis and psych consult.
[2018-10-08 18:23] LABS: BASO # 0.1 K/uL (0.0-0.2); BASO % 0.9 % (0.0-2.0); EOS # 0.5 K/uL (0.0-0.7); EOS % 3.7 % (0.0-4.0); HEMOGLOBIN 13.9 g/dL (11.0-16.0); LYMPH % 37.5 % (20.0-40.0); MEAN CORPUSCULAR HEMOGLOBIN 30.6 pg (27.0-31.0); MEAN CORPUSCULAR HGB CONC 32.9 g/dL (33.0-37.0); MEAN PLATELET VOLUME 7.7 fL (7.2-11.7); MONO # 0.8 K/uL (0.0-0.8); MONO % 5.8 % (0.0-10.0); NEUT % 52.1 % (50.0-75.0); NRBC % 0.1 % (0.0-2.0); RBC 4.53 Mil/uL (3.80-5.20); RED CELL DISTRIBUTION WIDTH 14.1 % (11.5-14.5); WHITE BLOOD COUNT 13.4 K/uL (4.8-10.8)
[2018-10-08 18:33] LABS: ALB/GLOB RATIO 1.4 (1.0-2.1); ALBUMIN 4.7 g/dL (3.5-5.0); BLOOD UREA NITROGEN 14 mg/dL (7-17); GFR NON-AFRICAN AMERICAN > 60; URINE BILIRUBIN NEGATIVE (NEGATIVE); URINE BLOOD NEGATIVE (NEGATIVE); URINE CLARITY Clear (Clear); URINE COLOR Yellow (YELLOW); URINE GLUCOSE (UA) NORMAL (Normal); URINE LEUKOCYTE ESTERASE NEG Leu/uL (Negative); URINE PROTEIN NEGATIVE (NEGATIVE); URINE UROBILINOGEN NORMAL mg/dL (0.2-1.0)
[2018-10-08 18:41] LABS: HCG,QUALITATIVE URINE NEGATIVE (NEGATIVE)
[2018-10-08 18:43] LABS: ALT/SGPT 9 U/L (9-52); AST/SGOT 30 U/L (14-36); BARBITURATES, UR NEGATIVE (NEGATIVE); BENZODIAZEPINES, UR NEGATIVE (NEGATIVE); OPIATES, UR NEGATIVE (NEGATIVE); PHENCYCLIDINE, UR NEGATIVE (NEGATIVE)
--- NOTE | 2018-10-08 21:42 | PCM.BM ---
<Janes Lema - Last Filed: 10/08/18 21:41> Treatment Plan Problems - Problems identified on initial assessmt Command Auditory Hallucination Date Initiated: 10/08/18 Time Initiated: 20:20 Assessment reference: NA Status: Active Anxiety Date Initiated: 10/08/18 Time Initiated: 20:20 Assessment reference: NA Status: Active Treatment assets and liabiliti Patient Assests: cooperative, physically healthy, negotiates basic needs Patient Liabilities: financial problems, poor support system, relationship conflicts - Milieu Protocol Maintain good personal hygiene: daily Encourage regular showers, daily Remind patient to perform daily oral care, every shift Assist patient to perform ADL's Conduct patient checks and document Observation sheet: Q15 minutes Maintain personal safety: every shift Educate patient to report safety concerns to staff, every shift Monitor environment for contraband/sharps Medication safety: Monitor for expected outcome, potential side effects: every shift, Assess barriers to learning: every shift, Assess readiness for medication education: every shift <Jada Esparza - Last Filed: 10/09/18 11:52> - Diagnosis (1) Schizophrenia Status: Acute Interventions: 10/09/18 11:52 * Assess/adjust medications daily and /or as needed * See patient on an individual basis 7x/week to assess status of hallucinations * Discuss risks, benefits, side effects and alternatives of medications * <Sherrie Church - Last Filed: 10/10/18 11:34> Family Contact Family involvement: Patient does not wish Family/SO involvement Family contact: Patient declines to allow family contact at present - Goals for Treatment Patient goals for treatment: "I [facility] to go back to [facility]. Discharge/Continuing Care - Education Needs Education Needs: Patient Medication, Patient Diagnosis/Disease Process, Patient Coping Skills, Patient Anger Management skills, Patient Community resources, Patient Activities of Daily Living - Discharge Discharge Criteria: Free of agitation, Normal sleep pattern, Reduction of target symptoms Discharge to:: Home - Treatment Team Participation Discussed with Family/SO: No Was Patient/Family/SO present at Treatment Team Meeting: Yes
[2018-10-09] MEDS: Divalproex 500 mg DR Tab PO SCH ×2 (09:59→17:20)
--- NOTE | 2018-10-09 10:09 | PCM.PSYCH ---
Initial Psychiatric Evaluation - Initial Psychiatric Evaluation Type of Admission: Voluntary Legal Status: Capacity Current Medications: Active Medications Generic Name Dose Route Start Last Admin Trade Name Freq PRN Reason Stop Dose Admin Benztropine Mesylate 1 mg 10/08/18 20:38 10/09/18 07:54 Cogentin PO 1 mg Q6H PRN Administration EPS symptoms Divalproex Sodium 500 mg 10/09/18 10:00 10/09/18 09:[address] PO 500 mg BID CHACHO Administration Haloperidol 5 mg 10/08/18 20:37 10/09/18 07:53 Haldol PO 5 mg Q6H PRN Administration Agitation Pneumococcal Polyvalent Vaccine 0.5 ml 10/11/18 10:00 Pneumovax 23 Vaccine IM 10/11/18 10:01 .ONCE ONE Risperidone 1 mg 10/09/18 10:00 10/09/18 09:59 Risperdal Tab PO 1 mg BID CHACHO Administration Past Psychiatric History - Past Psychiatric History Previous Treatment History: Inpatient Pertinent Medical Hx (Current Medical&Sleep Prob, Allergies): Allergies Allergy/AdvReac Type Severity Reaction Status Date / Time No Known Allergies Allergy Verified 10/08/18 17:31 Ibuprofen [Motrin Tab] 800 mg PO QID #20 tab 08/17/18 Review of Systems - Review of Systems All systems: reviewed and no additional remarkable complaints except - Psychiatric Psychiatric: Anxiety, Auditory Hallucinations, Irritability, Mood Swings, Panic Attacks Mental Status Examination - Personal Presentation Personal Presentation: Looks stated age - Affect Affect: Broad - Motor Activity Motor Activity: Psychomotor Agitation - Reliability in Providing Information Reliability in Providing Information: Poor, due to alteration in thoughts, Poor, due to altered mood - Speech Speech: Disorganized - Formal Thought Process Formal Thought Process: Hallucinations, Delusions, Paranoia, Loosening of ass ociations - Hallucinations/Delusions Hallucinations: Auditory Delusions: Persecution - Obsessions/Compulsions Obsessions: No Compulsions: No - Cognitive Functions Orientation: Person, Place, Situation, Time Sensorium: Alert Attention/Concentration: Attentive Abstract Thinking: [place] Estimate of Intelligence: Below average Judgement: Imparied, as evidence by: Poor judgement, Imparied, as evidence by: Lack of insight into illness - Risk Risk: Suicidal, Diminished functioning - Strength & Assets Inventory Strength & Assets Inventory: Family support
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
[2018-10-10 06:30] VITALS: BP 100/62; PULSE 75; RESP 18; TEMP 98.5; O2SAT 98
[2018-10-10] MEDS: Divalproex 500 mg DR Tab PO SCH (09:44)
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
[2018-10-10] MEDS ORDERED: Haloperidol Decanoate 100 mg/ml Inj IM ONE (11:30)
[2018-10-11] MEDS ORDERED: Pneumococcal 23-Valent Vaccine IM ONE (10:00)
== END 2018-10-10 14:35 | disposition home or self-care (01) | DRG 885 ==
LOC: C.ER 17:16 → C.9E 19:53 → C.5E 20:10
PROVIDERS: ADMIT Psychiatry & Neurology Psychiatry; ATTEND Psychiatry & Neurology Psychiatry
PROC: GZHZZZZ Group Psychotherapy (ICD-10-PCS; principal; 2018-10-08)
PROC: GZ56ZZZ Individual Psychotherapy, Supportive (ICD-10-PCS; 2018-10-08)
DX: F20.9 Schizophrenia, unspecified (principal); Z87.891 Personal history of nicotine dependence

== ENCOUNTER 2018-10-16 16:16 | Emergency (ER) | payer MEDICARE, MEDICAID ==
[2018-10-16 16:17] VITALS: BMI 28.3
[2018-10-16 16:28] VITALS: BP 121/68; PULSE 88; RESP 20; TEMP 98.5; O2SAT 98
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
== END 2018-10-16 17:16 | disposition home or self-care (01) ==
LOC: C.ER 16:16
DX: Z04.71 Encounter for examination and observation following alleged adult physical abuse (principal)

== ENCOUNTER 2018-10-17 00:06 | Emergency (ER) | payer MEDICARE, MEDICAID ==
[2018-10-17 00:06] VITALS: BMI 28.3
[2018-10-17 00:21] VITALS: BP 121/78; PULSE 78; RESP 18; TEMP 98; O2SAT 100
--- NOTE | 2018-10-17 00:32 | C.PDOC ---
History Of Present Illness 38 year old female presents complaining of dental pain to the left lower gum area. Denies fever, facial swelling, or neck swelling. Time Seen by Provider: 10/17/18 00:21 Chief Complaint (Nursing): Dental Pain History Per: Patient History/Exam Limitations: no limitations Onset/Duration Of Symptoms: Hrs Current Symptoms Are (Timing): Still Present Recent travel outside of the [place]: No Past Medical History Reviewed: Historical Data, Nursing Documentation, Vital Signs Vital Signs: Last Vital Signs Temp 98 F 10/17/18 00:09 Pulse 78 10/17/18 00:09 Resp 18 10/17/18 00:09 BP 121/78 10/17/18 00:09 Pulse Ox 100 10/17/18 00:09 - Medical History PMH: Anxiety, Bipolar Disorder, Depression, Schizophrenia, Seizures (last episode 2013) Denies: Diabetes, Hepatitis, HIV, HTN, Chronic Kidney Disease, Sexually Transmitted Disease Surgical History: Cholecystectomy (2014, stones removed) - [facility] Procedures GROUP PSYCHOTHERAPY (10/08/18) INDIVID PSYCHOTHERAP NEC (03/30/14) INDIVIDUAL PSYCHOTHERAPY, COGNITIVE-BEHAVIORAL (12/08/17) INDIVIDUAL PSYCHOTHERAPY, SUPPORTIVE (10/08/18) INJECT/INFUSE NEC (01/08/14) MEDICATION MANAGEMENT (05/17/17) OTHER GROUP THERAPY (03/30/14) PSYCHIA INTERV/EVAL NEC (03/22/13) PSYCHIAT DRUG THERAP NEC (11/16/13) Family History: States: Unknown Family Hx - Social History Hx Tobacco Use: Yes Hx Alcohol Use: No Hx Substance Use: Yes - Immunization History Hx Tetanus Toxoid Vaccination: No Hx Influenza Vaccination: No Hx Pneumococcal Vaccination: No Review Of Systems Constitutional: Negative for: Fever ENT: Positive for: Mouth Pain. Negative for: Mouth Swelling Musculoskeletal: Negative for: Other (Neck swelling) Physical Exam - Physical Exam Appears: Non-toxic Skin: Normal Color, Warm, Dry Head: Atraumatic, Normacephalic, No Swelling (Facial) Eye(s): bilateral: Normal Inspection Nose: Normal Oral Mucosa: Moist Teeth: Other (Large dental di to right posterior molar) Gingiva: Other (Left posterior tenderness, no swelling or erythema) Throat: Normal, No Erythema, No Exudate Neck: Normal, Supple Neurological/Psych: Oriented x3, Normal Speech ED Course And Treatment O2 Sat by Pulse Oximetry: 100 (room air) Pulse Ox Interpretation: Normal Progress Note: Motrin administered. Patient resting comfortably in no acute distress, vitals are stable, will discharge home with instructions to follow up with dentist. Disposition Counseled Patient/Family Regarding: Diagnosis, Need For Followup - Disposition Referrals: [facility] at [facility] [Outside] Disposition: HOME/ ROUTINE Disposition Time: 00:29 Condition: STABLE Additional Instructions: Follow up with a dentist Take medications as directed Return to ER if worse Prescriptions: Ibuprofen [Motrin] 600 mg PO Q6H #20 tab Instructions: Dental Pain (DC) Forms: [employer] [place] ([place] Islander) - Clinical Impression Clinical Impression: Pain, dental - PA / DIRECTOR SAFETY COUNCIL / Resident Statement MD/DO has reviewed & agrees with the documentation as recorded. - Scribe Statement The provider has reviewed the documentation as recorded by the Scribhero Reich All medical record entries made by the Scribe were at my direction and personally dictated by me. I have reviewed the chart and agree that the record accurately reflects my personal performance of the history, physical exam, m edical decision making, and the department course for this patient. I have also personally directed, reviewed, and agree with the discharge instructions and disposition.
== END 2018-10-17 00:49 | disposition home or self-care (01) ==
LOC: C.ER 00:06
DX: K08.89 Other specified disorders of teeth and supporting structures (principal); F17.210 Nicotine dependence, cigarettes, uncomplicated

== ENCOUNTER 2018-10-17 05:47 | Emergency (ER) | payer MEDICARE, MEDICAID ==
[2018-10-17 05:47] VITALS: BMI 28.3
[2018-10-17 05:59] VITALS: BP 114/79; PULSE 89; TEMP 98.2; O2SAT 100
--- NOTE | 2018-10-17 06:36 | C.PDOC ---
Time Seen by Provider: 10/17/18 06:35 Chief Complaint (Nursing): Psychiatric Evaluation Past Medical History Vital Signs: Last Vital Signs Temp 98.2 F 10/17/18 05:54 Pulse 89 10/17/18 05:54 Resp 20 10/17/18 05:54 BP 114/79 10/17/18 05:54 Pulse Ox 100 10/17/18 05:54 - Medical History PMH: Anxiety, Bipolar Disorder, Depression, Schizophrenia, Seizures (last episode 2013) Denies: Diabetes, Hepatitis, HIV, HTN, Chronic Kidney Disease, Sexually Transmitted Disease Surgical History: Cholecystectomy (2014, stones removed) - [facility] Procedures GROUP PSYCHOTHERAPY (10/08/18) INDIVID PSYCHOTHERAP NEC (03/30/14) INDIVIDUAL PSYCHOTHERAPY, COGNITIVE-BEHAVIORAL (12/08/17) INDIVIDUAL PSYCHOTHERAPY, SUPPORTIVE (10/08/18) INJECT/INFUSE NEC (01/08/14) MEDICATION MANAGEMENT (05/17/17) OTHER GROUP THERAPY (03/30/14) PSYCHIA INTERV/EVAL NEC (03/22/13) PSYCHIAT DRUG THERAP NEC (11/16/13) Family History: States: Unknown Family Hx - Social History Hx Tobacco Use: Yes Hx Alcohol Use: No Hx Substance Use: No - Immunization History Hx Tetanus Toxoid Vaccination: No Hx Influenza Vaccination: No Hx Pneumococcal Vaccination: No ED Course And Treatment O2 Sat by Pulse Oximetry: 100 Disposition Counseled Patient/Family Regarding: Studies Performed, Diagnosis - Disposition Disposition Time: 06:36
[2018-10-17 06:37] VITALS: RESP 16
== END 2018-10-17 06:36 | disposition left against medical advice (07) ==
LOC: C.ER 05:47
DX: Z02.89 Encounter for other administrative examinations (principal)

== ENCOUNTER 2018-10-17 22:12 | Emergency (ER) | payer MEDICAID, MEDICARE ==
[2018-10-17 22:12] VITALS: BMI 28.3
[2018-10-17 22:32] VITALS: RESP 20; O2SAT 100
--- NOTE | 2018-10-17 23:19 | C.PDOC ---
History Of Present Illness 38 year old female presents to the ED requesting to stay in the ED because she has a Psych appointment tomorrow morning but she feels her symptoms are severe. Reports she was suicidal last week but is currently asymptomatic. States she tried hurting herself in 2005 by cutting her wrist "a little bit" but has no suicidal plan or suicidal ideation at the moment. Also notes she had abdominal pain one hour ago, but symptoms subsided. Denies any n/v/d, fever, chills, SOB, or chest pain. Time Seen by Provider: 10/17/18 22:40 Chief Complaint (Nursing): Abdominal Pain History Per: Patient History/Exam Limitations: no limitations Onset/Duration Of Symptoms: Hrs Current Symptoms Are (Timing): Gone Radiation Of Pain To:: None Quality Of Discomfort: "Pain" Associated Symptoms: denies: Fever, Chills, Nausea, Vomiting, Diarrhea Past Medical History Reviewed: Historical Data, Nursing Documentation, Vital Signs Vital Signs: Last Vital Signs Temp 98.5 F 10/17/18 22:24 Pulse 83 10/17/18 22:24 Resp 20 10/17/18 22:24 BP 130/82 10/17/18 22:24 Pulse Ox 100 10/17/18 22:24 - Medical History PMH: Anxiety, Bipolar Disorder, Depression, Schizophrenia, Seizures (last episode 2013) Denies: Diabetes, Hepatitis, HIV, HTN, Chronic Kidney Disease, Sexually Transmitted Disease Surgical History: Cholecystectomy (2014, stones removed) - [facility] Procedures GROUP PSYCHOTHERAPY (10/08/18) INDIVID PSYCHOTHERAP NEC (03/30/14) INDIVIDUAL PSYCHOTHERAPY, COGNITIVE-BEHAVIORAL (12/08/17) INDIVIDUAL PSYCHOTHERAPY, SUPPORTIVE (10/08/18) INJECT/INFUSE NEC (01/08/14) MEDICATION MANAGEMENT (05/17/17) OTHER GROUP THERAPY (03/30/14) PSYCHIA INTERV/EVAL NEC (03/22/13) PSYCHIAT DRUG THERAP NEC (11/16/13) Family History: States: No Known Family Hx - Social History Hx Tobacco Use: Yes Hx Alcohol Use: No Hx Substance Use: No - Immunization History Hx Tetanus Toxoid Vaccination: No Hx Influenza Vaccination: No Hx Pneumococcal Vaccination: No Review Of Systems Constitutional: Negative for: Fever, Chills Cardiovascular: Negative for: Chest Pain Respiratory: Negative for: Shortness of Breath Gastrointestinal: Positive for: Abdominal Pain. Negative for: Nausea, Vomiting, Diarrhea Physical Exam - Physical Exam Appears: Non-toxic, No Acute Distress Skin: Warm, Dry, No Rash Head: Normacephalic Eye(s): bilateral: Normal Inspection Nose: Normal Oral Mucosa: Moist Neck: Supple Chest: Symmetrical Cardiovascular: Rhythm Regular Respiratory: Normal Breath Sounds, No Rales, No Rhonchi, No Wheezing Extremity: Bilateral: Atraumatic, Normal Color And Temperature, Normal ROM Neurological/Psych: Oriented x3, Normal Speech Gait: Steady ED Course And Treatment O2 Sat by Pulse Oximetry: 100 (RA) Pulse Ox Interpretation: Normal Progress Note: Patient eloped prior to crisis evaluation. Medical Decision Making Medical Decision Making: Plan - Crisis Eval Disposition - Disposition Disposition: ELOPEMENT - ER ONLY Disposition Time: 00:37 Condition: STABLE - Clinical Impression Clinical Impression: Schizophrenia - Scribe Statement The provider has reviewed the documentation as recorded by the Scribe Almaz Anaya All medical record entries made by the Dianaibhero were at my direction and personally dictated by me. I have reviewed the chart and agree that the record accurately reflects my personal performance of the history, physical exam, medical decision making, and the department course for this patient. I have also personally directed, reviewed, and agree with the discharge instructions and disposition.
[2018-10-18 00:40] VITALS: BP 122/83; PULSE 72; TEMP 98.1
== END 2018-10-18 00:40 | disposition left against medical advice (07) ==
LOC: C.ER 22:12
DX: F20.9 Schizophrenia, unspecified (principal)

== ENCOUNTER 2018-10-23 23:48 | Inpatient (IN) | payer MEDICARE, MEDICAID ==
[2018-10-23 23:49] VITALS: BMI 28.3
--- NOTE | 2018-10-24 00:39 | C.PDOC ---
History Of Present Illness Patient brought in by police and medics for bizarre affect, states she is hearing voices telling her people are after her. Denies physical complaints at this time. Time Seen by Provider: 10/24/18 00:38 Chief Complaint (Nursing): Psychiatric Evaluation History Per: Patient, EMS History/Exam Limitations: no limitations Onset/Duration Of Symptoms: Hrs Current Symptoms Are (Timing): Still Present Suicide/Self Injury Attempted (Context): None Modifying Factor(s): None Severity: None Pain Scale Rating Of: 0 Associated Symptoms: Other (Hearing voices) Involuntary Hold By: None Recent travel outside of the [place]: No Additional History Per: Patient, EMS Past Medical History Reviewed: Historical Data, Nursing Documentation, Vital Signs Vital Signs: Last Vital Signs Temp 97.9 F 10/23/18 23:54 Pulse 100 H 10/23/18 23:54 Resp 18 10/23/18 23:54 BP 110/69 10/23/18 23:54 Pulse Ox 99 10/23/18 23:54 - Medical History PMH: Anxiety, Bipolar Disorder, Depression, Schizophrenia, Seizures (last episode 2013) Denies: Diabetes, Hepatitis, HIV, HTN, Chronic Kidney Disease, Sexually Transmitted Disease Surgical History: Cholecystectomy (2014, stones removed) - [facility] Procedures GROUP PSYCHOTHERAPY (10/08/18) INDIVID PSYCHOTHERAP NEC (03/30/14) INDIVIDUAL PSYCHOTHERAPY, COGNITIVE-BEHAVIORAL (12/08/17) INDIVIDUAL PSYCHOTHERAPY, SUPPORTIVE (10/08/18) INJECT/INFUSE NEC (01/08/14) MEDICATION MANAGEMENT (05/17/17) OTHER GROUP THERAPY (03/30/14) PSYCHIA INTERV/EVAL NEC (03/22/13) PSYCHIAT DRUG THERAP NEC (11/16/13) Family History: States: Unknown Family Hx - Social History Hx Tobacco Use: Yes Hx Alcohol Use: No Hx Substance Use: No - Immunization History Hx Tetanus Toxoid Vaccination: No Hx Influenza Vaccination: No Hx Pneumococcal Vaccination: No Review Of Systems Constitutional: Negative for: Fever, Chills Cardiovascular: Negative for: Chest Pain, Palpitations Respiratory: Negative for: Cough, Shortness of Breath Gastrointestinal: Negative for: Nausea, Vomiting Neurological: Negative for: Weakness, Numbness Psych: Positive for: Other (Hearing voices) Physical Exam - Physical Exam Appears: Non-toxic Head: Normacephalic Neck: Supple Chest: Symmetrical Cardiovascular: Rhythm Regular Respiratory: No Rales, No Rhonchi, No Wheezing Gastrointestinal/Abdominal: Soft, No Tenderness Extremity: Normal ROM Neurological/Psych: Oriented x3 Gait: Steady Additional Physical Exam Comments: Patient only allowed to have heart and lungs examined, ambulating up and down hallway without difficulty. ED Course And Treatment - Laboratory Results Result Diagrams: 10/24/18 01:19 03 01:19 O2 Sat by Pulse Oximetry: 99 (Room air) Pulse Ox Interpretation: Normal Progress Note: Blood work and urinalysis ordered. Crisis notified. Disposition Discussed With Dr.: Marcelino Gomez Comment: accepted the pt on his service and took over the care at 2;41 AM Doctor Will See Patient In The: Hospital Counseled Patient/Family Regarding: Studies Performed, Diagnosis - Disposition Disposition: HOSPITALIZED Disposition Time: 00:38 Condition: FAIR Forms: [facility] (Colombian) - POA Present On Arrival: None - Clinical Impression Clinical Impression: Major depression - Scribe Statement The provider has reviewed the documentation as recorded by the Scribe Hugh Reich All medical record entries made by the Scribe were at my direction and personally dictated by me. I have reviewed the chart and agree that the record accurately reflects my personal performance of the history, physical exam, medical decision making, and the department course for this patient. I have also personally directed, reviewed, and agree with the discharge instructions and disposition. Decision To Admit - Pt Status Changed To: Hospital Disposition Of: Inpatient - Admit Certification Admit to Inpatient:: After my assessment, the patient will require hospitalization for at least two midnights. This is because of the severity of symptoms shown, intensity of services needed, and/or the medical risk in this patient being treated as an outpatient. - InPatient: Physician Admission Certification: I certify that this patient requires 2 or more midnights of care for the following reason:: After my assessment, the patient will require hospitalization for at least two midnights. This is because of the severity of symptoms shown, intensity of services needed, and/or the medical risk in this patient being treated as an outpatient. - . Bed Request Type: Psychiatry Admitting Physician: Marcelino Gomez Patient Diagnosis: Major depression
[2018-10-24 01:26] LABS: BASO # 0.1 K/uL (0.0-0.2); BASO % 0.6 % (0.0-2.0); EOS # 0.6 K/uL (0.0-0.7); HEMOGLOBIN 13.3 g/dL (11.0-16.0); LYMPH # 5.4 K/uL (1.0-4.3); LYMPH % 37.5 % (20.0-40.0); MEAN CELL VOLUME 92.1 fL (81.0-99.0); MEAN CORPUSCULAR HEMOGLOBIN 30.5 pg (27.0-31.0); MEAN CORPUSCULAR HGB CONC 33.1 g/dL (33.0-37.0); MEAN PLATELET VOLUME 7.7 fL (7.2-11.7); MONO # 1.2 K/uL (0.0-0.8); MONO % 8.1 % (0.0-10.0); NEUT # 7.2 K/uL (1.8-7.0); NEUT % 49.8 % (50.0-75.0); RBC 4.35 Mil/uL (3.80-5.20); RED CELL DISTRIBUTION WIDTH 14.1 % (11.5-14.5); WHITE BLOOD COUNT 14.4 K/uL (4.8-10.8)
[2018-10-24 01:31] LABS: SQUAMOUS EPITHIAL < 1 /hpf (0-5); URINE BILIRUBIN NEGATIVE (NEGATIVE); URINE BLOOD NEGATIVE (NEGATIVE); URINE CLARITY Clear (Clear); URINE COLOR Straw (YELLOW); URINE GLUCOSE (UA) NORMAL (Normal); URINE LEUKOCYTE ESTERASE NEG Leu/uL (Negative); URINE PROTEIN NEGATIVE (NEGATIVE); URINE UROBILINOGEN NORMAL mg/dL (0.2-1.0)
[2018-10-24 01:42] LABS: ALB/GLOB RATIO 1.6 (1.0-2.1); ALBUMIN 4.1 g/dL (3.5-5.0); ALT/SGPT 21 U/L (9-52); AST/SGOT 29 U/L (14-36); BLOOD UREA NITROGEN 10 mg/dL (7-17); CALCIUM 9.7 mg/dl (8.6-10.4); GFR NON-AFRICAN AMERICAN > 60
[2018-10-24 02:06] LABS: BARBITURATES, UR NEGATIVE (NEGATIVE); BENZODIAZEPINES, UR NEGATIVE (NEGATIVE); OPIATES, UR NEGATIVE (NEGATIVE); PHENCYCLIDINE, UR NEGATIVE (NEGATIVE)
--- NOTE | 2018-10-24 05:13 | PCM.BM ---
<Christofer Saavedra - Last Filed: 10/24/18 05:10> Treatment Plan Problems - Problems identified on initial assessmt AUDITORY HALLUCINATION Date Initiated: 10/24/18 Time Initiated: 04:00 Assessment reference: NA Status: Active HOPELESSNESS & HELPLESSNESS Date Initiated: 10/24/18 Time Initiated: 04:00 Assessment reference: NA Status: Active Treatment assets and liabiliti Patient Assests: cooperative, self-reliant, ADL independent, negotiates basic needs Patient Liabilities: live alone, financial problems, poor support system - Milieu Protocol Maintain good personal hygiene: daily Encourage regular showers, daily Remind patient to perform daily oral care, daily Assist patient to perform ADL's Conduct patient checks and document Observation sheet: Q15 minutes Maintain personal safety: every shift Educate patient to report safety concerns to staff, every shift Monitor environment for contraband/sharps Medication safety: Monitor for expected outcome, potential side effects: every shift, Assess barriers to learning: every shift, Assess readiness for medication education: every shift <Lico Headley - Last Filed: 10/24/18 11:07> - Diagnosis (1) Schizoaffective disorder Status: Acute Interventions: 10/24/18 11:08 * Assess/adjust medications daily and /or as needed * See patient on an individual basis 7x/week to assess status of hallucinations * Discuss risks, benefits, side effects and alternatives of medications * <Sherrie Church - Last Filed: 10/26/18 10:01> Family Contact Family involvement: Patient does not wish Family/SO involvement Family contact: Patient declines to allow family contact at present - Goals for Treatment Patient goals for treatment: I want to go back to [facility]. Discharge/Continuing Care - Education Needs Education Needs: Patient Medication, Patient Diagnosis/Disease Process, Patient Coping Skills, Patient Placement options, Patient Community resources - Discharge Discharge Criteria: Free of Suicidal thoughts, Free of Homicidal thoughts, Free of paranoid thoughts, Normal sleep pattern, Ability to care for self, Reduction of target symptoms Discharge to:: Home - Treatment Team Participation Discussed with Family/SO: No Was Patient/Family/SO present at Treatment Team Meeting: Yes
[2018-10-24 09:30] VITALS: O2SAT 97
[2018-10-24] MEDS ORDERED: DiphenhydrAMINE 50 mg/ml Inj IM PRN (11:04)
--- NOTE | 2018-10-24 11:07 | PCM.PSYCH ---
Initial Psychiatric Evaluation - Initial Psychiatric Evaluation Type of Admission: Voluntary Legal Status: Capacity Chief Complaint (in patient's own words): I was hearing voices to kill myself.' History of Present Illness and Precipitating Events: Pt is a 38yr old , female, who is currently homeless, came to the ED in a disorganized state and with complaints of auditory hallucinations telling the people after. Patient has a long history of schizophrenia. She has history of multiple inpatient psychiatric hospitalizations. She was recently discharged from [facility] a few weeks ago. As per the patient soon after discharge from the hospital she stopped taking her medications. She also denies any history of follow-up with any psychiatrist as well. Patient reports that, while she at [email or web address], she began to hear voices, telling her that people are after her. The stafff at the restaurant called EMS and the police. Patient appears very disorganized and internally preoccupied she appears paran oid and delusional. She remained a poor historian. She was yelling and cursing at him on 'white' people and remained irritable and agitated throughout the interview. She reports of hearing voices and reports of extreme paranoia that people are following her. She reports irritability and agitation, poor sleep and restlessness. However she denies any drinking or any drugs. PN: Within half an hour, patient became irritable and agitated and started yelling and cursing at other peers, security was called and patient was medicated Current Medications: Active Medications Generic Name Dose Route Start Last Admin Trade Name Freq PRN Reason Stop Dose Admin Chlorpromazine 50 mg 10/24/18 11:04 Thorazine IM Q6H PRN Agitation Diphenhydramine HCl 50 mg 10/24/18 11:04 Benadryl IM Q6H PRN Agitation Diphenhydramine HCl 50 mg 10/24/18 11:05 Benadryl PO Q6 PRN Agitation Divalproex Sodium 500 mg 10/24/18 11:[address] PO BID CHACHO Fluphenazine HCl 5 mg 10/24/18 11:15 Prolixin PO BID CHACHO Influenza Virus Vaccine 60 mcg 10/26/18 10:00 Flucelvax Quad 7927-4632 Syr IM 10/26/18 10:01 .ONCE ONE Lorazepam 2 mg 10/24/18 11:06 Ativan IM Q6H PRN Anxiety Pneumococcal Polyvalent Vaccine 0.5 ml 10/26/18 10:30 Pneumovax 23 Vaccine IM 10/26/18 10:31 .ONCE ONE Past Psychiatric History - Past Psychiatric History Previous Treatment History: Inpatient Pertinent Medical Hx (Current Medical&Sleep Prob, Allergies): Allergies Allergy/AdvReac Type Severity Reaction Status Date / Time No Known Allergies Allergy Verified 10/17/18 05:58 No Known Home Med 10/23/18 Review of Systems - Review of Systems All systems: reviewed and no additional remarkable complaints except - Psychiatric Psychiatric: Anxiety, Auditory Hallucinations, Irritability, Mood Swings, Paranoia Mental Status Examination - Personal Presentation Personal Presentation: Looks stated age - Affect Affect: Broad - Motor Activity Motor Activity: Psychomotor Agitation - Reliability in Providing Information Reliability in Providing Information: Poor, due to alteration in thoughts, Poor, due to altered mood - Speech Speech: Disorganized - Mood Mood: Anxious - Formal Thought Process Formal Thought Process: Hallucinations, Delusions, Paranoia, Loosening of associations, Flight of ideas - Hallucinations/Delusions Hallucinations: Visual, Auditory Delusions: Persecution - Obsessions/Compulsions Obsessions: No Compulsions: No - Cognitive Functions Orientation: Person, Place, Situation, Time Sensorium: Alert Attention/Concentration: Attentive Abstract Thinking: [place] Estimate of Intelligence: Below average Judgement: Imparied, as evidence by: Poor judgement, Imparied, as evidence by: Lack of insight into illness - Risk Risk: Suicidal, Diminished functioning - Limitations Limitations: Living alone DSM 5 DX - DSM 5 DSM 5 Diagnosis: Schizo affective disorder bipolar type - Recommended/Plan of Treatment Treatment Recommendations and Plan of Treatment: Schizoaffective disorder bipolar type -CBT -Psychoeducation -Supportive therapy and group therapy -Prolixin for psychosis -Depakote for mood -Klonopin for anxiety -Seroquel for insomnia -Benadryl IM for severe agitation -Thorazine IM for severe agitation
[2018-10-24] MEDS: Divalproex 500 mg DR Tab PO SCH ×2 (12:38→18:59)
[2018-10-25] MEDS: guaiFENesin 100 mg/5 ml Syrup UD PO PRN (02:50)
[2018-10-25] MEDS: Divalproex 500 mg DR Tab PO SCH ×3 (09:44→17:58)
--- NOTE | 2018-10-25 21:11 | PCM.PYCHPN ---
Psychiatric Progress Note - Psychiatric Progress Note Patient seen today, length of contact: 15 min Patient Chief Complaint: I m still hearing voices.' Problems Identified/Issues Discussed: Patient was seen and evaluated, chart reviewed and discussed with staff. Patient remained disorganized and internally preoccupied. She remained irritable, agitated and aggressive. As per the staff, she is still hearing voices and still appears paranoid and delusional. However she is taking medication and denies any side effects. Patient needs to stay longer for stabilization. Supportive therapy was given Medication Change: Yes Medical Record Reviewed: Yes Mental Status Examination - Cognitive Function Orientation: Person, Place, Situation, Time Memory: Intact Attention: Poor Concentration: Poor Association: Loose Fund of Knowledge: Poor - Mood Mood: Anxious - Affect Affect: Broad - Speech Speech: Loud, Pressured - Formal Thought Process Formal Thought Process: Hallucinations, Delusions, Paranoia, Loosening of associations, Flight of ideas - Suicidal Ideation Suicidal Ideation: No - Homicidal Ideation Homicidal Ideation: No Goal/Treatment Plan - Goal/Treatment Plan Need for Continued Stay: Remain at risks for inpatient hospitalization, Discharge may exacerbated symptoms Progress Toward Problem(s) and Goals/Treatment Plan: Schizoaffective disorder bipolar type -CBT -Psychoeducation -Supportive therapy and group therapy -Prolixin for psychosis -Depakote for mood -Klonopin for anxiety -Seroquel for insomnia -Benadryl IM for severe agitation -Thorazine IM for severe agitation
[2018-10-26] MEDS: guaiFENesin 100 mg/5 ml Syrup UD PO PRN (04:07)
[2018-10-26 06:03] VITALS: BP 90/59; PULSE 98; RESP 20; TEMP 98.5
[2018-10-26] MEDS: Divalproex 500 mg DR Tab PO SCH (09:26)
--- NOTE | 2018-10-26 09:30 | PCM.PYCHDC ---
Mental Status Examination - Mental Status Examination Orientation: Person, Place, Situation, Time Memory: Intact Mood: Neutral Affect: Constricted Speech: Soft Attention: WNL Concentration: WNL Association: WNL Fund of Knowledge: WNL Formal Thought Process: No Impairment Description of patient's judgement and insight: good, fair Psychotic Thoughts and Behaviors: denies any AVH Suicidal Ideation: No Current Homicidal Ideation?: No Discharge Summary - Discharge Note Reason for Hospitalization: Pt is a 38yr old , female, who is currently homeless, came to the ED in a disorganized state and with complaints of auditory hallucinations telling the people after. Patient has a long history of schizophrenia. She has history of multiple inpatient psychiatric hospitalizations. She was recently discharged from [facility] a few weeks ago. As per the patient soon after discharge from the hospital she stopped taking her medications. She also denies any history of follow-up with any psychiatrist as well. Patient reports that, while she at [employer], she began to hear voices, telling her that people are after her. The stafff at the restaurant called EMS and the police. Patient appears very disorganized and internally preoccupied she appears paranoid and delusional. She remained a poor historian. She was yelling and cursing at him on 'white' people and remained irritable and agitated throughout the interview. She reports of hearing voices and reports of extreme paranoia that people are following her. She reports irritability and agitation, poor sleep and restlessness. However she denies any drinking or any drugs. Pt is a 38yr old , female, who is currently homeless, came to the ED in a disorganized state and with complaints of auditory hallucinations telling the people after. Patient has a long history of schizophrenia. She has history of multiple inpatient psychiatric hospitalizations. She was recently discharged from [facility] a few weeks ago. As per the patient soon after discharge from the hospital she stopped taking her medications. She also denies any history of follow-up with any psychiatrist as well. Patient reports that, while she at [employer], she began to hear voices, telling her that people are after her. The stafff at the restaurant called EMS and the police. Patient appears very disorganized and internally preoccupied she appears paranoid and delusional. She remained a poor historian. She was yelling and cursing at him on 'white' people and remained irritable and agitated throughout the interview. She reports of hearing voices and reports of extreme paranoia that people are following her. She reports irritability and agitation, poor sleep and restlessness. However she denies any drinking or any drugs. Consultations:: List each consultation separately and include: 1. Reason for request. 2. Findings. 3. Follow-up Summary of Hospital Course include:: 1. Description of specific treatment plan utilized for patients during their course of treatmen. 2. Summarize the time- course for resolution of acute symptoms and/or regressed behaviors. 3. Describe issues identified and worked on during hospitalization. 4. Describe medication utilized. 5. Describe medical problems identified and treated. 6. Reassessment of suicide risk Summary of Hospital Course: During the course of her stay, patient (pt) started progressively improving and no longer remained irritable, depressed, paranoid and suicidal. Her mood and anxiety were improved and she started attending groups and meetings and started socializing. Patient denied any feelings of hopelessness, helplessness, and worthlessness, denied any problem with the sleep or appetite, denied suicidal ideation or homicidal ideation. Pt denied any auditory or visual hallucinations. She denied any withdrawal symptoms. Pt was treated with medications along with supportive therapy, milieu therapy and group therapy. Some changes were made in her current medications and patient was discharged on following medications. She tolerated these medications very well and denied any side effects. - Diagnosis (1) Schizoaffective disorder Status: Acute - Final Diagnosis (DSM 5) Condition upon Discharge: FAIR DSM 5: Schizoaffective disorder bipolar type Disposition: HOME/ ROUTINE Follow-up Treatment Plan: Followup: She was discharged to the [facility] [place] outpatient program. Education: Pt was educated and counseled about the risks and benefits of taking and not taking medications. Pt was educated and counseled about the risks of drinking and abusing drugs. Pt was educated and counseled to go to the ER or call 911 if pt develop suicidal ideation or homicidal ideation, worsening of symptoms or severe side effects of the meds. Prescriptions/Medication Reconciliation: Divalproex [Depakote DR] 500 mg PO BID #60 tcp fluPHENAZine [Prolixin] 10 mg PO BID #60 tab QUEtiapine [Seroquel] 100 mg PO HS #30 tab - Smoking Cessation Smoking Cessation Medication prescribed: No - Antipsychotic Medications Pt discharged on 2 or more routine antipsychotic medications: No
[2018-10-26] MEDS ORDERED: Influenza Vaccine 60 mcg/0.5 mL SYR (4YR UP) IM ONE (10:00)
[2018-10-26] MEDS ORDERED: Pneumococcal 23-Valent Vaccine IM ONE (10:30)
== END 2018-10-26 10:00 | disposition home or self-care (01) | DRG 885 ==
LOC: C.ER 23:48 → C.5E 10-24 02:40
DX: F25.0 Schizoaffective disorder, bipolar type (principal); F41.9 Anxiety disorder, unspecified; G47.00 Insomnia, unspecified; Z59.0 Homelessness; Z87.891 Personal history of nicotine dependence

== ENCOUNTER 2018-12-04 13:14 | Emergency (ER) | payer MEDICARE, MEDICAID ==
[2018-12-04 13:14] VITALS: BMI 28.3
[2018-12-04 13:21] VITALS: BP 97/67; PULSE 96; RESP 18; TEMP 98.4; O2SAT 99
--- NOTE | 2018-12-04 13:36 | C.PDOC ---
History Of Present Illness 38 y/o female,w/PMhx of anxiety and schizoaffective disorder, presents to the ER requesting anxiety medication refill.Patient states that she has not taken her medications for over 2 months.Patient denies having suicidal ideation, homicidal ideation, and active physical complaints. Time Seen by Provider: 12/04/18 13:29 Chief Complaint (Nursing): Anxiety History Per: Patient History/Exam Limitations: no limitations Past Medical History Reviewed: Historical Data, Nursing Documentation, Vital Signs Vital Signs: Last Vital Signs Temp 98.4 F 12/04/18 13:21 Pulse 96 H 12/04/18 13:21 Resp 18 12/04/18 13:21 BP 97/67 L 12/04/18 13:21 Pulse Ox 99 12/04/18 13:21 - Medical History PMH: Anxiety, Bipolar Disorder, Depression, Schizophrenia Denies: Diabetes, Hepatitis, HIV, HTN, Chronic Kidney Disease, Seizures, Sexually Transmitted Disease Surgical History: Cholecystectomy (2014, stones removed) - [facility] Procedures GROUP PSYCHOTHERAPY (10/08/18) INDIVID PSYCHOTHERAP NEC (03/30/14) INDIVIDUAL PSYCHOTHERAPY, COGNITIVE-BEHAVIORAL (12/08/17) INDIVIDUAL PSYCHOTHERAPY, SUPPORTIVE (10/08/18) INJECT/INFUSE NEC (01/08/14) MEDICATION MANAGEMENT (05/17/17) OTHER GROUP THERAPY (03/30/14) PSYCHIA INTERV/EVAL NEC (03/22/13) PSYCHIAT DRUG THERAP NEC (11/16/13) Family History: States: No Known Family Hx - Social History Hx Tobacco Use: Yes Hx Alcohol Use: No Hx Substance Use: Yes - Immunization History Hx Tetanus Toxoid Vaccination: No Hx Influenza Vaccination: No Hx Pneumococcal Vaccination: No Review Of Systems Except As Marked, All Systems Reviewed And Found Negative. Constitutional: Negative for: Fever, Chills Psych: Negative for: Suicidal ideation Physical Exam - Physical Exam Appears: Non-toxic, No Acute Distress Skin: Normal Color, Warm, Dry Head: Atraumatic, Normacephalic Eye(s): bilateral: Normal Inspection Neck: Supple Chest: Symmetrical Cardiovascular: Rhythm Regular Respiratory: Normal Breath Sounds, No Rales, No Rhonchi, No Wheezing Neurological/Psych: Oriented x3, Normal Speech ED Course And Treatment O2 Sat by Pulse Oximetry: 99 (RA) Pulse Ox Interpretation: Normal Medical Decision Making Medical Decision Making: Patient has been discharged with prescription for Atarax and has been instructed to follow up with [facility]. Disposition Counseled Patient/Family Regarding: Diagnosis, Need For Followup - Disposition Referrals: [facility] [Outside] Disposition: HOME/ ROUTINE Disposition Time: 13:34 Condition: GOOD Prescriptions: hydrOXYzine HCl [Atarax] 50 mg PO Q6H PRN #20 tab PRN Reason: Anxiety Instructions: Anxiety, Adult (DC) Forms: [employer] Connect (Maldivian), General Discharge Instructions - POA Present On Arrival: None - Clinical Impression Clinical Impression: Anxiety - Scribe Statement The provider has reviewed the documentation as recorded by the Nicolle Haq Provider Attestation: All medical record entries made by the Dianaibe were at my direction and personally dictated by me. I have reviewed the chart and agree that the record accurately reflects my personal performance of the history, physical exam, medical decision making, and the department course for this patient. I have also personally directed, reviewed, and agree with the discharge instructions and disposition.
== END 2018-12-04 13:49 | disposition home or self-care (01) ==
LOC: C.ER 13:14
DX: F41.9 Anxiety disorder, unspecified (principal)

== ENCOUNTER 2018-12-10 16:02 | Emergency (ER) | payer MEDICARE, MEDICAID ==
[2018-12-10 16:03] VITALS: BMI 28.3
--- NOTE | 2018-12-10 16:28 | C.PDOC ---
History Of Present Illness Patient is a 38 year old female, with many prior psychiatric evaluations and a PMHx of schizophrenia, who is brought into the ED by [place] [employer] for medical clearance for incarceration of criminal mischief. She denies any CP, SOB, fever, abdominal pain, SI/HI, injuries or other complaints at the present moment. Time Seen by Provider: 12/10/18 16:07 Chief Complaint (Nursing): Medical Clearance History Per: Patient History/Exam Limitations: no limitations Suicide/Self Injury Attempted (Context): None Associated Symptoms: denies: Suicidal Thoughts, Suicidal Plan Recent travel outside of the [place]: No Additional History Per: Patient Past Medical History Reviewed: Historical Data, Nursing Documentation, Vital Signs - Medical History PMH: Anxiety, Bipolar Disorder, Depression, Schizophrenia Denies: Diabetes, Hepatitis, HIV, HTN, Chronic Kidney Disease, Seizures, Sexually Transmitted Disease Surgical History: Cholecystectomy (2014, stones removed) - [facility] Procedures GROUP PSYCHOTHERAPY (10/08/18) INDIVID PSYCHOTHERAP NEC (03/30/14) INDIVIDUAL PSYCHOTHERAPY, COGNITIVE-BEHAVIORAL (12/08/17) INDIVIDUAL PSYCHOTHERAPY, SUPPORTIVE (10/08/18) INJECT/INFUSE NEC (01/08/14) MEDICATION MANAGEMENT (05/17/17) OTHER GROUP THERAPY (03/30/14) PSYCHIA INTERV/EVAL NEC (03/22/13) PSYCHIAT DRUG THERAP NEC (11/16/13) Family History: States: Unknown Family Hx - Social History Hx Tobacco Use: Yes Hx Alcohol Use: No (denies) Hx Substance Use: (pt denies) - Immunization History Hx Tetanus Toxoid Vaccination: No Hx Influenza Vaccination: No Hx Pneumococcal Vaccination: No Review Of Systems Constitutional: Positive for: Other (bizarre). Negative for: Fever Cardiovascular: Negative for: Chest Pain Respiratory: Negative for: Shortness of Breath Physical Exam - Physical Exam Appears: Non-toxic, No Acute Distress, Other (bizarre) Skin: Normal Color, Warm, Dry Head: Atraumatic, Normacephalic Oral Mucosa: Moist Chest: Symmetrical Cardiovascular: Rhythm Regular, No Murmur Respiratory: Normal Breath Sounds, No Rales, No Rhonchi, No Wheezing Gastrointestinal/Abdominal: Soft Neurological/Psych: Oriented x3 Medical Decision Making Medical Decision Making: schizophrenia, ? substance abuse stable for incarceration Disposition Doctor Will See Patient In The: Office Counseled Patient/Family Regarding: Studies Performed, Diagnosis - Disposition Referrals: [facility] [Outside] [facility] [Outside] [facility] [Outside] [facility] [Outside] Disposition: HOME/ ROUTINE Disposition Time: 16:24 Condition: GOOD Additional Instructions: MEDICALLY CLEARED FOR INCARCERATION Forms: General Discharge Instructions, [facility] (Cameroonian) - Clinical Impression Clinical Impression: Behavior disturbance - Scribe Statement The provider has reviewed the documentation as recorded by the Dianaibhero Dominguez All medical record entries made by the Dianaibhero were at my direction and personally dictated by me. I have reviewed the chart and agree that the record accurately reflects my personal performance of the history, physical exam, medical decision making, and the department course for this patient. I have also personally directed, reviewed, and agree with the discharge instructions and disposition.
[2018-12-10 16:29] VITALS: BP 130/81; PULSE 109; RESP 20; TEMP 98.6; O2SAT 99
== END 2018-12-10 16:36 | disposition home or self-care (01) ==
LOC: C.ER 16:02
DX: F91.9 Conduct disorder, unspecified (principal)

== ENCOUNTER 2018-12-27 18:44 | Emergency (ER) | payer MEDICARE, MEDICAID ==
[2018-12-27 18:44] VITALS: BMI 28.3
--- NOTE | 2018-12-27 19:53 | C.PDOC ---
History Of Present Illness 38 year old female is here because she wants to see if she has "a hernia on her ovary". Patient has a primary who already sent her for an US, she has with her the results which were normal. Patient had a in 1995 and believes the "hernia on her ovary" is related to the . She admits to nausea and has had a few loose stools. Currently denies abdominal pain, fever, dysuria, hematuria, vaginal bleeding,or diarrhea. Time Seen by Provider: 12/27/18 19:07 Chief Complaint (Nursing): Abdominal Pain History Per: Patient History/Exam Limitations: no limitations Onset/Duration Of Symptoms: Hrs Current Symptoms Are (Timing): Still Present Quality Of Discomfort: Unable To Describe Associated Symptoms: Other ((+) Nausea, Loose stools. (-) Abdominal pain, Fever, Dysuria, Hematuria, Vaginal bleeding, Diarrhea.) Exacerbating Factors: None Alleviating Factors: None Recent travel outside of the [place]: No Abnormal Vaginal Bleeding: No Past Medical History Reviewed: Historical Data, Nursing Documentation, Vital Signs Vital Signs: Last Vital Signs Temp 94.4 F L 12/27/18 18:59 Pulse 82 12/27/18 18:59 Resp 20 12/27/18 18:59 BP 106/71 12/27/18 18:59 Pulse Ox 99 12/27/18 18:59 Primary Care Provider: Saúl Titus - Medical History PMH: Anxiety, Bipolar Disorder, Depression, Schizophrenia Denies: Diabetes, Hepatitis, HIV, HTN, Chronic Kidney Disease, Seizures, Sexually Transmitted Disease Surgical History: Cholecystectomy (2014, stones removed) - [facility] Procedures GROUP PSYCHOTHERAPY (10/08/18) INDIVID PSYCHOTHERAP NEC (03/30/14) INDIVIDUAL PSYCHOTHERAPY, COGNITIVE-BEHAVIORAL (12/08/17) INDIVIDUAL PSYCHOTHERAPY, SUPPORTIVE (10/08/18) INJECT/INFUSE NEC (01/08/14) MEDICATION MANAGEMENT (05/17/17) OTHER GROUP THERAPY (03/30/14) PSYCHIA INTERV/EVAL NEC (03/22/13) PSYCHIAT DRUG THERAP NEC (11/16/13) Family History: States: Unknown Family Hx - Social History Hx Tobacco Use: Yes Hx Alcohol Use: No (denies) Hx Substance Use: No (pt denies) - Immunization History Hx Tetanus Toxoid Vaccination: No Hx Influenza Vaccination: No Hx Pneumococcal Vaccination: No Review Of Systems Except As Marked, All Systems Reviewed And Found Negative. Gastrointestinal: Positive for: Nausea, Other (Loose stools) Physical Exam - Physical Exam Appears: Non-toxic, No Acute Distress, Other (Bizarre affect) Skin: Normal Color, Warm Head: Atraumatic, Normacephalic Eye(s): bilateral: Normal Inspection Oral Mucosa: Moist Chest: Symmetrical, No Tenderness Cardiovascular: Rhythm Regular Respiratory: Normal Breath Sounds, No Rales, No Rhonchi, No Wheezing Gastrointestinal/Abdominal: Soft, No Tenderness, Other (Surgical scar to suprapubic area, nontender, no palpable hernia) Back: No CVA Tenderness Neurological/Psych: Oriented x3, Normal Speech ED Course And Treatment O2 Sat by Pulse Oximetry: 99 (Room air) Pulse Ox Interpretation: Normal Progress Note: UA and Ucg ordered. Disposition Counseled Patient/Family Regarding: Studies Performed, Diagnosis, Need For Followup, Rx Given - Disposition Referrals: Saúl Titus MD [Staff Provider] - Leonel Titus MD [Staff Provider] - Disposition: HOME/ ROUTINE Disposition Time: 20:20 Condition: STABLE Additional Instructions: FOLLOW UP WITH YOUR PRIMARY DOCTOR IN 1-2 DAYS Forms: [facility] (Arabic), General Discharge Instructions Print Language: ROMANSH - Clinical Impression Clinical Impression: Pain in surgical scar - Scribe Statement The provider has reviewed the documentation as recorded by the Scribe Hugh Reich All medical record entries made by the Scribe were at my direction and personally dictated by me. I have reviewed the chart and agree that the record accurately reflects my personal performance of the history, physical exam, medical decision making, and the department course for this patient. I have also personally directed, reviewed, and agree with the discharge instructions and disposition.
[2018-12-27 20:05] LABS: SQUAMOUS EPITHIAL 1 /hpf (0-5); URINE BACTERIA RARE (<OCC); URINE BILIRUBIN NEGATIVE (NEGATIVE); URINE BLOOD NEGATIVE (NEGATIVE); URINE CLARITY Hazy (Clear); URINE COLOR Yellow (YELLOW); URINE GLUCOSE (UA) NORMAL (Normal); URINE LEUKOCYTE ESTERASE NEG Leu/uL (Negative); URINE PROTEIN NEGATIVE (NEGATIVE); URINE UROBILINOGEN NORMAL mg/dL (0.2-1.0)
[2018-12-27 20:12] LABS: HCG,QUALITATIVE URINE NEGATIVE (NEGATIVE)
[2018-12-27 20:24] VITALS: BP 128/67; PULSE 86; RESP 16; TEMP 98.3; O2SAT 97
== END 2018-12-27 20:24 | disposition home or self-care (01) ==
LOC: C.ER 18:44
DX: R52 Pain, unspecified (principal); F20.9 Schizophrenia, unspecified; Z72.0 Tobacco use